=== PATIENT | male | born 1955 | race African-American/Black ===

== ENCOUNTER 2017-08-03 09:16 | Observation (INO) | payer OTHER ==
[2017-08-03] MEDS ORDERED: SODIUM CHLORIDE 0.9% 1,000 ML IV STA (09:30)
[2017-08-03] MEDS ORDERED: ASPIRIN 81 MG PO STA (09:30)
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
[2017-08-03] MEDS: NITROGLYCERIN SL TABS 0.4 MG TAB SUBLINGUAL STA ×2 (09:59→10:23)
[2017-08-03 10:33] LABS: Basophils % (A) 1 %; CH 31.8; CHCM 33.6; Eosinophils # (A) 0.2 k/uL (0-0.7); Eosinophils % (A) 4 %; HDW 2.56; HGB 16.3 gm/dL (13.0-17.5); Luc # (Auto) 0.16; Luc % (Auto) 3; Lymphocytes # (A) 1.3 k/uL (1.0-4.8); Lymphocytes % (A) 28 %; MCH 32.3 pg (25.0-35.0); MCHC 33.9 g/dL (31.0-37.0); MCV 95.1 fL (80.0-100.0); Mean Platelet Volume 8.2; Monocytes # (A) 0.3 k/uL (0-1.0); Monocytes % (A) 6 %; Neutrophils # (A) 2.8 k/uL (1.3-7.7); Neutrophils % (A) 58 %; RBC 5.04 m/uL (4.30-5.90); RDW 12.6 % (11.5-15.5); WBC 4.8 k/uL (3.8-10.6); WBC (Perox) 4.81
[2017-08-03 10:39] LABS: Prothrombin Time 10.3 sec (9.0-12.0)
--- NOTE | 2017-08-03 10:47 | XR ---
EXAMINATION TYPE: XR chest 2V DATE OF EXAM: 08/03/2017 COMPARISON: 10/24/2014 HISTORY: Shortness of breath TECHNIQUE: Frontal and lateral views of the chest are obtained. FINDINGS: Scattered senescent parenchymal changes noted. Hyperinflation compatible with COPD. No evidence for infiltrate. No evidence for atelectasis. Heart size is stable. Mediastinal structures are stable and grossly unremarkable. No evidence for hilar prominence. Degenerative changes dorsal spine. IMPRESSION: 1. No evidence for acute pulmonary disease.
[2017-08-03 10:52] LABS: Creatine Kinase 134 U/L (55-170)
[2017-08-03 10:54] LABS: ALT 46 U/L (21-72); AST 46 U/L (17-59); Alkaline Phosphatase 105 U/L (38-126); Anion Gap 9 mmol/L; Blood Urea Nitrogen 10 mg/dL (9-20); Calcium 9.1 mg/dL (8.4-10.2); Carbon Dioxide 21 mmol/L (22-30); Chloride 108 mmol/L (98-107); Glucose 113 mg/dL (74-99); Magnesium 1.6 mg/dL (1.6-2.3); Non-African American GFR(MDRD) >60 (>60 ml/min/1.73 sqM); Potassium 4.2 mmol/L (3.5-5.1); Sodium 138 mmol/L (137-145); Total Bilirubin 0.4 mg/dL (0.2-1.3); Total Protein 7.1 g/dL (6.3-8.2)
[2017-08-03 11:05] LABS: Creatine Kinase MB 1.1 ng/mL (0.0-2.4); Troponin I <0.012 ng/mL (0.000-0.034)
[2017-08-03] MEDS ORDERED: NITROGLYCERIN SL TABS 0.4 MG TAB SUBLINGUAL PRN (12:04)
[2017-08-03] MEDS ORDERED: HEPARIN SODIUM,PORCINE 5,000 UNIT/ML 1 ML VIAL IV ONE (12:04)
[2017-08-03] MEDS ORDERED: SODIUM CHLORIDE 0.9% 1,000 ML IV ONE (12:04)
[2017-08-03] MEDS ORDERED: HEPARIN SODIUM,PORCINE/D5W PMX 25,000 UNIT in DEXTROSE/WATER 1 500ML.BAG IV SCH (12:15)
[2017-08-03] MEDS: MORPHINE SULFATE 2 MG/ML SYRINGE IVP PRN ×2 (16:49→20:18)
[2017-08-03 17:11] LABS: Creatine Kinase 127 U/L (55-170)
[2017-08-03 17:24] LABS: Creatine Kinase MB 0.9 ng/mL (0.0-2.4); Troponin I <0.012 ng/mL (0.000-0.034)
[2017-08-03 17:33] VITALS: RESP 18
[2017-08-03] MEDS: NITROGLYCERIN OINT 1 INCH/GM PACKET TOPICAL SCH (18:46)
[2017-08-03] MEDS ORDERED: HEPARIN SODIUM,PORCINE 5,000 UNIT/ML 1 ML VIAL IV PRN (19:58)
[2017-08-03 22:53] LABS: Creatine Kinase 117 U/L (55-170)
[2017-08-03 23:07] LABS: Creatine Kinase MB 0.9 ng/mL (0.0-2.4); Troponin I <0.012 ng/mL (0.000-0.034)
[2017-08-04] MEDS: NITROGLYCERIN OINT 1 INCH/GM PACKET TOPICAL SCH ×3 (01:05→14:03)
[2017-08-04] MEDS: MORPHINE SULFATE 2 MG/ML SYRINGE IVP PRN (03:19)
[2017-08-04 04:20] LABS: Cholesterol 200 mg/dL (<200); HDL Cholesterol 81 mg/dL (40-60)
[2017-08-04 08:06] VITALS: BP 116/69; PULSE 61; TEMP 97.5
[2017-08-04] MEDS ORDERED: ASPIRIN 325 MG TAB PO SCH (09:00)
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
[2017-08-04] MEDS ORDERED: CYCLOBENZAPRINE 5 MG TAB PO STA (11:32)
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
--- NOTE | 2017-08-08 13:28 | ECHOF ---
Referral Reason: MEASUREMENTS -------- HEIGHT: 152.4 cm WEIGHT: 86.6 kg BP: 121/40 IVSd: 1.2 cm (0.6 - 1.1) LVIDd: 4.8 cm (3.9 - 5.3) LVPWd: 1.2 cm (0.6 - 1.1) IVSs: 1.4 cm LVIDs: 3.4 cm LVPWs: 1.3 cm LA Diam: 3.5 cm (2.7 - 3.8) LAESV Index (A-L): 37.29 ml/m Ao Diam: 3.2 cm (2.0 - 3.7) AV Cusp: 1.9 cm (1.5 - 2.6) LA Diam: 3.4 cm (2.7 - 3.8) MV EXCURSION: 22.473 mm (> 18.000) MV EF SLOPE: 114 mm/s (70 - 150) EPSS: 0.3 cm MV E Syed: 0.66 m/s MV DecT: 220 ms MV A Syed: 0.56 m/s MV E/A Ratio: 1.17 RAP: 5.00 mmHg RVSP: 26.73 mmHg FINDINGS -------- Sinus rhythm. This was a technically good study. There is mild concentric left ventricular hypertrophy. Overall left ventricular systolic function is normal with, an EF between 55 - 60 %. The right ventricle is normal in size. LA is moderately dilated 34-39 ml/m2 The right atrial size is normal. The aortic valve is trileaflet, and appears structurally normal. No aortic stenosis or regurgitation. Mild mitral regurgitation is present. Mild tricuspid regurgitation present. There is no evidence of pulmonary hypertension. The right ventricular systolic pressure, as measured by Doppler, is 26.73mmHg. There is no pulmonic regurgitation present. The aortic root size is normal. There is no pericardial effusion. CONCLUSIONS -------- 1. There is mild concentric left ventricular hypertrophy. 2. The aortic root size is normal. 3. There is no pericardial effusion. 4. Overall left ventricular systolic function is normal with, an EF between 55 - 60 %. 5. LA is moderately dilated 34-39 ml/m2 6. The aortic valve is trileaflet, and appears structurally normal. No aortic stenosis or regurgitation. 7. Mild mitral regurgitation is present. 8. Mild tricuspid regurgitation present. 9. There is no evidence of pulmonary hypertension. 10. The right ventricular systolic pressure, as measured by Doppler, is 26.73mmHg. 11. There is no pulmonic regurgitation present. UNIVERSITY RELATIONS DIRECTOR: Amie Avila RDCS
== END 2017-08-04 14:06 | disposition home or self-care (01) ==
LOC: EC 09:16 → 3OBS 11:52
PROVIDERS: ADMIT Internal Medicine; ATTEND Internal Medicine
DX: R07.89 Other chest pain (principal); R07.2 Precordial pain; F17.210 Nicotine dependence, cigarettes, uncomplicated; Z80.1 Family history of malignant neoplasm of trachea, bronchus and lung; Z87.898 Personal history of other specified conditions
CPT/HCPCS: 99285; 96376 ×4; 96365 ×2; 96366 ×6; 96375 ×2; 36415; 93005; 93306; 85379; 80061; 80053; 82550; 82553; 83735; 84484; 85025; 85610; 85730 ×2; 71020; G0378 ×2; J1644 ×2; J2270 ×2

== ENCOUNTER → 2018-08-29 | Outpatient (CLI) | payer OTHER ==
[2018-08-29 17:55] LABS: Partial Thromboplastin Time 24.5 sec (22.0-30.0)
[2018-08-30 03:56] LABS: HIV 1 AB Non-Reactive (Non-Reactive); HIV AB P24 Non-Reactive (Non-Reactive); HIV P24 AG Non-Reactive (Non-Reactive)
== END | disposition home or self-care (01) ==
LOC: LABWHC1 16:37
PROVIDERS: ATTEND Internal Medicine Infectious Disease
DX: B18.2 Chronic viral hepatitis C (principal)
CPT/HCPCS: 36415; 85610; 85730; 87390; 87522

== ENCOUNTER → 2018-10-18 | Outpatient (CLI) | payer OTHER ==
[2018-10-18 15:04] LABS: Basophils % (A) 1 %; Eosinophils # (A) 0.2 k/uL (0-0.7); Eosinophils % (A) 4 %; HGB 17.4 gm/dL (13.0-17.5); Lymphocytes # (A) 1.8 k/uL (1.0-4.8); Lymphocytes % (A) 39 %; MCH 31.7 pg (25.0-35.0); MCHC 31.6 g/dL (31.0-37.0); MCV 100.3 fL (80.0-100.0); Mean Platelet Volume 7.7; Monocytes # (A) 0.4 k/uL (0-1.0); Monocytes % (A) 8 %; Neutrophils # (A) 2.1 k/uL (1.3-7.7); Neutrophils % (A) 45 %; Platelet Count 172 k/uL (150-450); RDW 12.6 % (11.5-15.5); WBC 4.6 k/uL (3.8-10.6)
[2018-10-18 15:10] LABS: HCT 55.2 % (39.0-53.0)
[2018-10-19 01:47] LABS: Albumin 4.3 g/dL (3.80-4.90); Albumin/Globulin Ratio 1.65 (1.20-2.10); Anion Gap 6.6 mmol/L (4.00-12.00); Calcium 9.5 mg/dL (8.7-10.3); Carbon Dioxide 26.4 mmol/L (21.6-31.8); Globulin 2.6 g/dL (2.1-3.7); Potassium 4.9 mmol/L (3.5-5.5); Total Bilirubin 0.6 mg/dL (0.2-1.2); Total Protein 6.9 g/dL (6.2-8.2)
== END | disposition home or self-care (01) ==
LOC: LABWHC1 13:56
PROVIDERS: ATTEND Internal Medicine Infectious Disease
DX: B20 Human immunodeficiency virus [HIV] disease (principal)
CPT/HCPCS: 36415; 80053; 85025

== ENCOUNTER 2019-02-21 05:55 | Emergency (ER) | payer OTHER ==
[2019-02-21 06:02] VITALS: BP 154/99; PULSE 67; RESP 20; TEMP 98
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
== END 2019-02-21 06:33 | disposition home or self-care (01) ==
LOC: EC 05:55
DX: K20.8 Other esophagitis (principal); F17.200 Nicotine dependence, unspecified, uncomplicated
CPT/HCPCS: 99285

== ENCOUNTER 2020-01-03 18:20 | Inpatient (IN) | payer OTHER ==
[2020-01-03] MEDS ORDERED: SODIUM CHLORIDE 0.9% 1,000 ML IV ONE ×2 (18:58→21:48)
[2020-01-03 19:28] LABS: Appearance,Urine Turbid (Clear); Bacteria,Urine Occasional /hpf; Bilirubin,Urine Negative (Negative); Blood,Urine Large (Negative); Color,Urine Dark Brown; Glucose,Urine (UA) Trace (Negative); Granular Casts,Urine 8 /lpf (0); Hyaline Casts,Urine 3 /lpf (0-2); Ketones,Urine Negative (Negative); Leukocyte Esterase,Urine Moderate (Negative); Mucus,Urine Rare /hpf; Nitrite,Urine Negative (Negative); Protein,Urine 2+ (Negative); RBC,Urine 3 /hpf (0-5); Specific Gravity,Urine 1.018 (1.001-1.035); WBC,Urine 60 /hpf (0-5)
[2020-01-03 19:38] LABS: Amphetamine Screen,Urine Not Detected (NotDetected); Barbiturate Screen,Urine Not Detected (NotDetected); Benzodiazepines Screen,Urine Not Detected (NotDetected); Cocaine Screen,Urine Not Detected (NotDetected); Methadone Screen, Urine Not Detected (NotDetected); Opiate Screen,Urine Not Detected (NotDetected); Oxycodone Screen, Urine Not Detected (NotDetected); Phencyclidine Screen,Urine Not Detected (NotDetected); Tricyclic Antidepressant,Urine Not Detected (NotDetected); Urn Cannabinoid Scrn Not Detected (NotDetected)
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
[2020-01-03 21:17] LABS: Basophils # (A) 0.2 k/uL (0-0.2); Basophils % (A) 2 %; Eosinophils # (A) 0.2 k/uL (0-0.7); Eosinophils % (A) 2 %; HGB 15.5 gm/dL (13.0-17.5); Lymphocytes # (A) 1.6 k/uL (1.0-4.8); Lymphocytes % (A) 14 %; MCH 30.3 pg (25.0-35.0); MCHC 32.3 g/dL (31.0-37.0); MCV 93.9 fL (80.0-100.0); Mean Platelet Volume 9.4; Monocytes # (A) 0.4 k/uL (0-1.0); Monocytes % (A) 4 %; Neutrophils # (A) 9.1 k/uL (1.3-7.7); Neutrophils % (A) 79 %; Platelet Count 157 k/uL (150-450); RBC 5.11 m/uL (4.30-5.90); RDW 12.7 % (11.5-15.5); WBC 11.6 k/uL (3.8-10.6)
[2020-01-03 21:25] LABS: Partial Thromboplastin Time 23.2 sec (22.0-30.0); Prothrombin Time 10.4 sec (9.0-12.0)
[2020-01-03 21:26] LABS: African American GFR (CKD) 18 (>60 ml/min/1.73 sqM); Albumin 4.2 g/dL (3.5-5.0); Alcohol <10 mg/dL; Alkaline Phosphatase 106 U/L (38-126); Anion Gap 13 mmol/L; Blood Urea Nitrogen 48 mg/dL (9-20); C Reactive Protein 45.3 mg/L (<10.0); Calcium 8.4 mg/dL (8.4-10.2); Carbon Dioxide 23 mmol/L (22-30); Chloride 100 mmol/L (98-107); Glucose 111 mg/dL (74-99); Non-African American GFR(CKD) 15 (>60 ml/min/1.73 sqM); Potassium 4.4 mmol/L (3.5-5.1); Sodium 136 mmol/L (137-145); Total Bilirubin 0.8 mg/dL (0.2-1.3); Total Protein 7.2 g/dL (6.3-8.2)
[2020-01-03 21:39] LABS: ALT 1247 U/L (4-49)
[2020-01-03 22:08] LABS: D-Dimer 2.78 mg/L FEU (<0.60)
[2020-01-03 22:17] LABS: AST 4194 U/L (17-59)
[2020-01-03] MEDS ORDERED: HEPARIN SODIUM,PORCINE 5,000 UNIT/ML 1 ML VIAL IV ONE (22:36)
[2020-01-03] MEDS ORDERED: HEPARIN SODIUM,PORCINE 5,000 UNIT/ML 1 ML VIAL IV PRN (22:36)
[2020-01-03 22:41] LABS: Creatine Kinase 60963 U/L (55-170)
[2020-01-03] MEDS ORDERED: HEPARIN SOD,PORK IN 0.45% NACL 25,000 UNIT in 0.45% NACL 1 250ML.BAG IV SCH (22:45)
[2020-01-03] MEDS ORDERED: SODIUM CHLORIDE 0.9% 1,000 ML IV SCH (22:45)
[2020-01-03 23:04] LABS: Erythrocyte Sedimentation Rate 7 mm/hr (0-15)
[2020-01-03] MEDS ORDERED: MORPHINE SULFATE 4 MG/ML SYRINGE IV PRN (23:22)
[2020-01-03] MEDS ORDERED: NALOXONE 0.4 MG/ML 1 ML VIAL IV PRN (23:22)
[2020-01-04 01:04] LABS: Glucose,Whole Blood 146 mg/dL (75-99)
[2020-01-04] MEDS: DEXTROSE 5% IN WATER 1,000 ML with SODIUM BICARB (1 MEQ/ML) 150 ML IV SCH ×3 (02:36→21:06)
[2020-01-04 05:52] LABS: Basophils # (A) 0.1 k/uL (0-0.2); Basophils % (A) 1 %; Eosinophils # (A) 0.2 k/uL (0-0.7); Eosinophils % (A) 3 %; HCT 44.4 % (39.0-53.0); HGB 14.4 gm/dL (13.0-17.5); Lymphocytes # (A) 1.9 k/uL (1.0-4.8); Lymphocytes % (A) 24 %; MCH 30.5 pg (25.0-35.0); MCHC 32.5 g/dL (31.0-37.0); MCV 93.8 fL (80.0-100.0); Mean Platelet Volume 8.9; Monocytes # (A) 0.3 k/uL (0-1.0); Monocytes % (A) 4 %; Neutrophils # (A) 5.5 k/uL (1.3-7.7); Neutrophils % (A) 67 %; Platelet Count 125 k/uL (150-450); RBC 4.73 m/uL (4.30-5.90); RDW 12.6 % (11.5-15.5); WBC 8.1 k/uL (3.8-10.6)
[2020-01-04 06:04] LABS: Partial Thromboplastin Time 45.8 sec (22.0-30.0); Prothrombin Time 10.4 sec (9.0-12.0)
[2020-01-04 06:16] LABS: Calcium 8.3 mg/dL (8.4-10.2); Magnesium 1.8 mg/dL (1.6-2.3); Phosphorus 3.6 mg/dL (2.5-4.5); Potassium 4.1 mmol/L (3.5-5.1)
[2020-01-04 06:55] LABS: Albumin 3.6 g/dL (3.5-5.0); Total Bilirubin 0.8 mg/dL (0.2-1.3); Total Protein 6.2 g/dL (6.3-8.2)
[2020-01-04] MEDS: PANTOPRAZOLE 40 MG/10 ML VIAL IV SCH (08:41)
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
--- NOTE | 2020-01-04 13:30 | HP ---
HISTORY AND PHYSICAL CHIEF COMPLAINT: Cough, congestion, and myalgias. HISTORY OF PRESENT ILLNESS: His history is not likely to be accurate. He stated he was in [place] and snorted something and thought it was heroin, but does not know. He also was drinking heavily and drinks 2 pints a day. It is not clear if he passed out or not, nor how long he was out and if he did lose consciousness. When he came to the emergency room, he had laboratory studies that demonstrated urine with numerous white and red blood cells as well as protein. There were also hyaline casts. His CBC was normal. BUN was elevated 48 with a creatinine of 3.95. GFR was only 18. CK was 60,963 and it was felt he probably had rhabdomyolysis. REVIEW OF SYSTEMS: He denies any neurologic problems, change in vision or hearing, chest pain, cough, shortness of breath, abdominal pain, vomiting, hematemesis, melena, hematochezia, jaundice, acholic stools or dark urine. He does have hepatitis C with a viral load. He denies dysuria, frequency, urgency, etc. Past medical history, family history and personal and social histories are otherwise unremarkable. He is not allergic to any medication. MEDICATIONS: The only medicine that he states that he takes his tramadol. PHYSICAL EXAMINATION: Blood pressure is 151/103 with a pulse 63, respirations of 12 and he is afebrile. In general, he appeared to be well developed, well nourished, no acute distress. Skin color is normal. Skin is warm, dry. Lymph nodes are not enlarged. Head, ears, eyes, nose, mouth, and throat were normal. Neck veins not distended. Thyroid is not enlarged. Chest is clear. The cardiac exam is normal. Abdomen is soft, nontender. He does have edema of the face and upper and lower extremities. IMPRESSION: 1. Rhabdomyolysis. 2. Acute renal failure. 3. Alcoholism. 4. Heroin addiction. PLAN: 1. Bed rest. 2. IV fluids. 3. Control hypertension. 4. Monitor renal function. 5. Renal consult. MMODL / JAYYN: [id number] /
--- NOTE | 2020-01-04 13:30 | PN ---
PROGRESS NOTE CHIEF COMPLAINT: Rhabdomyolysis and alcoholism with renal failure. HISTORY OF PRESENT ILLNESS: This gentleman is feeling fairly well, but he is still complaining of a lot of swelling and pain in the arm in the musculature in the arms and legs. BUN and creatinine are still elevated and he is to be seen by Nephrology. PHYSICAL EXAMINATION: Vital signs are normal. Chest is clear. Cardiac exam is normal. Abdomen is soft and nontender. IMPRESSION: 1. Rhabdomyolysis. 2. Acute renal injury. 3. Alcoholism. 4. Heroin addiction. PLAN: Continue with IV fluids and continue to monitor renal function and vital signs. MMODL / IJN: [id number] /
[2020-01-04] MEDS: NICOTINE 7MG/24HR PATCH TRANSDERM SCH (17:19)
[2020-01-04] MEDS: HEPARIN SODIUM,PORCINE 5,000 UNIT/ML 1 ML VIAL SQ SCH (19:58)
[2020-01-04] MEDS: amLODIPine 5 MG TAB PO SCH (19:58)
[2020-01-04] MEDS: hydrALAZINE HCL 50 MG TAB PO SCH (19:58)
[2020-01-05 06:17] LABS: Basophils % (A) 1 %; Eosinophils # (A) 0.1 k/uL (0-0.7); Eosinophils % (A) 4 %; HCT 44.1 % (39.0-53.0); HGB 14.7 gm/dL (13.0-17.5); Lymphocytes % (A) 28 %; MCH 31.1 pg (25.0-35.0); MCHC 33.3 g/dL (31.0-37.0); MCV 93.4 fL (80.0-100.0); Mean Platelet Volume 9.1; Monocytes # (A) 0.2 k/uL (0-1.0); Monocytes % (A) 5 %; Neutrophils % (A) 58 %; Platelet Count 130 k/uL (150-450); RBC 4.72 m/uL (4.30-5.90); RDW 12.5 % (11.5-15.5); WBC 3.5 k/uL (3.8-10.6)
[2020-01-05 06:26] LABS: INR 0.9 (<1.2); Partial Thromboplastin Time 22.3 sec (22.0-30.0); Prothrombin Time 9.5 sec (9.0-12.0)
[2020-01-05 06:29] LABS: Calcium 9.1 mg/dL (8.4-10.2); Magnesium 1.8 mg/dL (1.6-2.3); Phosphorus 1.9 mg/dL (2.5-4.5); Potassium 4.1 mmol/L (3.5-5.1)
[2020-01-05] MEDS: DEXTROSE 5% IN WATER 1,000 ML with SODIUM BICARB (1 MEQ/ML) 150 ML IV SCH (09:02)
[2020-01-05] MEDS: hydrALAZINE HCL 50 MG TAB PO SCH ×4 (09:02→21:41)
[2020-01-05] MEDS: HEPARIN SODIUM,PORCINE 5,000 UNIT/ML 1 ML VIAL SQ SCH ×2 (09:02→21:43)
[2020-01-05] MEDS: amLODIPine 5 MG TAB PO SCH ×2 (09:02→21:41)
[2020-01-05] MEDS: PANTOPRAZOLE 40 MG/10 ML VIAL IV SCH (09:03)
[2020-01-05] MEDS: NICOTINE 7MG/24HR PATCH TRANSDERM SCH (09:04)
[2020-01-05] MEDS: SODIUM CHLORIDE 0.45% 1,000 ML IV SCH ×2 (09:05→16:01)
--- NOTE | 2020-01-05 09:38 | P.PN ---
Subjective Progress Note Date: 01/05/20 Principal diagnosis: Acute rhabdomyolysis, acute kidney injury This is a 64-year-old -[place]ien male with history of recently discovered positive hepatitis C screening. History of alcoholism patient drinks at least 2 pints of alcohol per day. Patient was in [place] yesterday, he had quite a few drinks, and he snorted some had a 1. [place] drowsy and apparently he passed out hitting his head. He was told by a friend that he passed out. But could not elaborate how long and what was done. Patient drove himself home from [place] to [place], after arrival to [place], patient was experiencing generalized aches and pains. [place] sore all over. Then he drove himself to the ER. And his only complaint was mostly aches and pains. Denied any headaches, denied any blurred vision, no dizziness, no nausea, no vomiting, no abdominal pain, no melena, no hematemesis. Patient had workup in the form of CT head and cervical spine which came back negative. Chest x-ray showed no evidence of cardiopulmonary disease. Labs however came back abnormal showing elevated liver enzymes with AST of 4194 ALT of 1247, elevated troponin of 0.619 and has been trending downward since admission. His CPK however was extremely high at 60,963. Lipase was also elevated at 325. Alcohol level was less than 10. Urinary drug screen was negative. Influenza screen was also negative. Patient denies any cough, no wheezing, no fever, no chills, no hemoptysis, he also denies any shortness of breath whatsoever. He just feels sore all over. Follow-up CPK level is pending liver enzymes are improving since admission. Patient was placed on IV fluids at 150 mL per hour in the form of 0.9 normal saline. Renal functioning was abnormal creatinine 3.95 on admission went down to 2.62 with hydration.. Patient is already feeling a bit better, considering his abnormal troponin, d-dimer, and abnormal renal functioning, patient was placed on heparin intravenously, my index of suspicion for pulmonary embolism is nill, however I have recommended cardiac evaluation for his abnormal troponins. Patient is yet to be seen by cardiology on consultation. Again the repeat CPK is pending. On 01/05/2020 patient seen in follow-up in the intensive care unit, he is awake and alert, oriented 3, denies any acute distress, currently on room air, with a pulse ox of 96%, hemodynamically stable, afebrile, denies any shortness of breath, denies any chest pain, no altered mentation. he is calm and cooperative, no signs of delirium tremens. The fluids are D5 W with 3 A of sodium bicarbonate at 150 ML per hour. Today's labs have been reviewed, showing liquid silk on a 3.5, hemoglobin of 14.7, INR 0.9, serum sodium is improving up to 134, potassium is 4.1, chloride is 97, CO2 is 37, B1 is 26, creatinine has improved down to 1.2 from 2.62 on yesterday's labs. Today's total CK is tren ding down, down to 14,966. No nausea vomiting or diarrhea, patient is tolerating oral intake. Patient is voiding. Objective - Vital Signs Vital signs: Vital Signs Temp 98.2 F 01/05/20 08:00 Pulse 73 01/05/20 08:00 Resp 18 01/05/20 08:00 BP 162/102 01/05/20 08:00 Pulse Ox 96 01/05/20 08:00 Intake & Output 01/04/20 01/05/20 01/05/20 18:59 06:59 18:59 Intake Total 1400 1650 Output Total 550 500 Balance 850 1150 Weight 88.6 kg Intake: IV 1400 1650 Dextrose 5% in Water 1, 1400 1650 000 ml @ 150 mls/hr IV . Q7H40M ERNESTINA with Sodium Bicarb (1 Meq/ml) 150 ml Rx#:[id number] Output: Urine 550 500 Other: Voiding Method Urinal Urinal Urinal # Voids 300 3 - Exam GENERAL EXAM: Alert, very pleasant, 64-year-old -N[place]ien male, on room air, with pulse ox of 96%, comfortable in no apparent distress. HEAD: Normocephalic/atraumatic. EYES: Normal reaction of pupils, equal size. Conjunctiva pink, sclera white. NOSE: Clear with pink turbinates. THROAT: No erythema or exudates. NECK: No masses, no JVD, no thyroid enlargement, no adenopathy. CHEST: No chest wall deformity. Symmetrical expansion. LUNGS: Equal air entry with no crackles, wheeze, rhonchi or dullness. CVS: Regular rate and rhythm, normal S1 and S2, no gallops, no murmurs, no rubs ABDOMEN: Soft, nontender. No hepatosplenomegaly, normal bowel sounds, no guarding or rigidity. EXTREMITIES: No clubbing, no edema, no cyanosis, 2+ pulses and upper and lower extremities. MUSCULOSKELETAL: Muscle strength and tone normal. SPINE: No scoliosis or deformity SKIN: No rashes CENTRAL NERVOUS SYSTEM: Alert and oriented -3. No focal deficits, tone is normal in all 4 extremities. PSYCHIATRIC: Alert and oriented -3. Appropriate affect. Intact judgment and insight. - Labs CBC & Chem 7: 01/05/20 05:57 01/05/20 05:57 Labs: Abnormal Lab Results - Last 24 Hours (Table) 01/04/20 01/04/20 01/04/20 Range/Units 05:25 11:48 11:48 WBC (3.8-10.6) k/uL Plt Count (150-450) k/uL Sodium (137-145) mmol/L Chloride (98-107) mmol/L Carbon Dioxide (22-30) mmol/L BUN (9-20) mg/dL Glucose (74-99) mg/dL Phosphorus (2.5-4.5) mg/dL AST (17-59) U/L ALT (4-49) U/L Creatine Kinase 91482 H* (55-170) U/L CK-MB (CK-2) 201.0 H (0.0-2.4) ng/mL Troponin I 0.124 H* (0.000-0.034) ng/mL 01/05/20 01/05/20 Range/Units 05:57 05:57 WBC 3.5 L (3.8-10.6) k/uL Plt Count 130 L (150-450) k/uL Sodium 134 L (137-145) mmol/L Chloride 97 L (98-107) mmol/L Carbon Dioxide 37 H (22-30) mmol/L BUN 26 H (9-20) mg/dL Glucose 156 H (74-99) mg/dL Phosphorus 1.9 L (2.5-4.5) mg/dL AST 1673 H (17-59) U/L ALT 733 H (4-49) U/L Creatine Kinase 88280 H* (55-170) U/L CK-MB (CK-2) (0.0-2.4) ng/mL Troponin I (0.000-0.034) ng/mL Assessment and Plan Plan: Assessment: #1. Acute rhabdomyolysis, most likely secondary to fall, patient has no recollection of how he fell or how he injured his head or how long she was down #2. Acute kidney injury secondary to acute rhabdomyolysis, improved #3. Untreated hepatitis C with abnormal liver enzymes #4. Alcohol liver disease and history of alcoholism #5. Abnormal d-dimer but no active pulmonary symptoms no clinical significance #6. Abnormal troponin, cardiac evaluation is requested Plan: Patient is hemodynamically stable, renal profile continues to improve, CT continues to trend down, tolerating oral diet, is voiding, no nausea or vomiting, today's labs have been reviewed, patient's bicarbonate drip can be discontinued and patient can be started on half-normal saline at a rate of 150 ML per hour, patient can be transferred to medical surgical floor with telemetry monitoring. Increase activity as tolerated, maintaining safety precautions, repeat labs in the morning. I performed a history & physical examination of the patient and discussed their management with my nurse practitioner, Sylvia Cartagena. I reviewed the nurse practitioner's note and agree with the documented findings and plan of care. Lung sounds are positive for clear breath sounds. The findings and the impression was discussed with the patient. I attest to the documentation by the nurse practitioner. Time with Patient: Less than 30
[2020-01-05 11:47] LABS: Albumin 3.6 g/dL (3.5-5.0); Total Bilirubin 0.9 mg/dL (0.2-1.3); Total Protein 6.3 g/dL (6.3-8.2)
--- NOTE | 2020-01-05 12:38 | PN ---
PROGRESS NOTE This is a 64-year-old gentleman who was admitted to hospital with rhabdomyolysis following cocaine and alcohol abuse. Patient was admitted to ICU because of elevated CPKs and renal insufficiency. I have been consulted because of elevated troponins. His troponins were at 0.6, 0.2 and 0.1 and this happened in the context of renal insufficiency. I have seen the patient on 01/04/2020 and today I am seeing the patient in followup. The patient is feeling better. Renal functions are improving. The CPK levels are coming down. I ordered an echo on him and results are pending at this time. PHYSICAL EXAMINATION: On exam, heart rate is 73 beats per minute. Blood pressure is 162/102. Respiratory rate is 18. Chest exam reveals good air entry bilaterally. Heart exam reveals first and second heart sounds. No gallop. No murmur. Abdomen is soft. Exam of extremities did not reveal any edema. Peripheral pulses are felt. ASSESSMENT: 1. Elevated troponin. 2. Uncontrolled hypertension. 3. Rhabdomyolysis. 4. Renal insufficiency. PLAN: Patient is doing better. I am going to increase the dose of hydralazine to 100 t.i.d. for better control of blood pressure. Review the echo. MMODL / IJN: [id number] /
--- NOTE | 2020-01-05 14:20 | CONS ---
CONSULTATION DATE OF CONSULTATION: 01/04/2020 CHIEF COMPLAINT: Elevated troponin. HISTORY OF PRESENT ILLNESS: Mr. Camargo is a 64-year-old gentleman who was admitted to hospital with rhabdomyolysis following ETOH and cocaine abuse. His CPKs were elevated and patient had renal insufficiency. After being admitted, he had troponins that were elevated due to which I was consulted. I saw the patient on Sunday. At the time of my evaluation, patient was chest pain-free, hemodynamically stable and did not have any cardiac symptoms. His creatinine is 2.6. BUN is 48. Troponins are mildly elevated at 0.2 and 0.1. I believe the troponin elevation is related to the renal insufficiency and I anticipate it getting better. An EKG on him shows sinus rhythm with right bundle branch block and an echocardiogram has been ordered. PAST MEDICAL HISTORY: Negative for hypertension, diabetes, dyslipidemia. MEDICATIONS: Include tramadol. ALLERGIES: There are no known drug allergies. FAMILY HISTORY: Negative for premature coronary artery disease. SOCIAL HISTORY: Negative for smoking, EtOH abuse, or drug abuse. REVIEW OF SYSTEMS: HEENT: Unremarkable. CARDIAC: As described above. RESPIRATORY: Negative GASTROINTESTINAL: Negative. GENITOURINARY: Negative. ALLERGY: None. SKIN: Negative. MUSCULOSKELETAL: Significant for arthritis. PSYCHOSOCIAL: Negative. ENDOCRINE: Negative. CONSTITUTIONAL: Negative. ONCOLOGICAL: Negative. SPECIAL SYSTEMS TECHNICIAN: Negative. PHYSICAL EXAMINATION: On exam, comfortable at rest. Blood pressure is elevated, heart rate is 67 beats per minute, blood pressure is 159____, respiratory rate 18 per minute. There is no jugular venous distention. Carotid upstroke is normal. There is no bruit. Chest exam reveals good air entry bilaterally. Heart exam reveals first and second heart sounds. No gallop. No murmur. No rub. Abdomen is soft, nontender. Exam of extremities did not reveal any edema. Peripheral pulses are felt. EKG is as described above. LABS: As described above. ASSESSMENT: 1. Rhabdomyolysis. 2. Troponin elevation secondary to renal insufficiency. PLAN: 1. I will obtain a 2D echo to assess LV function and wall motion. No other cardiac workup at this time. MMODL / IJN: [id number] /
[2020-01-05] MEDS ORDERED: BENZOCAINE/MENTHOL LOZENG 1 EACH LOZENGE MUCOUS MEM PRN (15:55)
--- NOTE | 2020-01-05 18:54 | ECHOF ---
Referral Reason:elevated troponins MEASUREMENTS -------- HEIGHT: 182.9 cm WEIGHT: 88.5 kg BP: IVSd: 1.2 cm (0.6 - 1.1) LVIDd: 3.9 cm (3.9 - 5.3) LVPWd: 1.3 cm (0.6 - 1.1) IVSs: 1.8 cm LVIDs: 3.1 cm LVPWs: 1.6 cm LAESV Index (A-L): 19.59 ml/m Ao Diam: 3.2 cm (2.0 - 3.7) AV Cusp: 1.5 cm (1.5 - 2.6) LA Diam: 2.7 cm (2.7 - 3.8) MV EXCURSION: 23.948 mm (> 18.000) MV EF SLOPE: 159 mm/s (70 - 150) EPSS: 1.1 cm MV E Syed: 0.45 m/s MV DecT: 262 ms MV A Syed: 0.71 m/s MV E/A Ratio: 0.63 RAP: 5.00 mmHg RVSP: 18.61 mmHg FINDINGS -------- Sinus rhythm. This was a technically good study. The left ventricular size is normal. Left ventricular wall thickness is normal. Overall left vent ricular systolic function is normal with, an EF between 55 - 60 %. The diastolic filling pattern is normal for the age of the patient 5.87. The right ventricle is normal in size. The left atrial size is normal. The right atrial size is normal. The aortic valve is trileaflet and appears structurally normal. The mitral valve is normal. There is trace mitral regurgitation. The tricuspid valve appears structurally normal. Trace tricuspid regurgitation present. The right ventricular systolic pressure, as measured by Doppler, is 18.61mmHg. There is no pulmonic regurgitation present. There is no pericardial effusion. CONCLUSIONS -------- 1. Sinus rhythm. 2. This was a technically good study. 3. The left ventricular size is normal. 4. Left ventricular wall thickness is normal. 5. Overall left ventricular systolic function is normal with, an EF between 55 - 60 %. 6. The diastolic filling pattern is normal for the age of the patient 5.87 7. The right ventricle is normal in size. 8. The left atrial size is normal. 9. The right atrial size is normal. 10. The aortic valve is trileaflet and appears structurally normal. 11. The mitral valve is normal. 12. There is trace mitral regurgitation. 13. The tricuspid valve appears structurally normal. 14. Trace tricuspid regurgitation present. 15. The right ventricular systolic pressure, as measured by Doppler, is 18.61mmHg. 16. There is no pulmonic regurgitation present. 17. There is no pericardial effusion. BURR BENCH OPERATOR: Lisa Victoria RDCS
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
[2020-01-05] MEDS: ACETAMINOPHEN TAB 325 MG TAB PO PRN (21:40)
--- NOTE | 2020-01-05 22:58 | PN ---
PROGRESS NOTE CHIEF COMPLAINT: Rhabdomyolysis. HISTORY OF PRESENT ILLNESS: This gentleman is doing a little bit better. He has a little less generalized edema and pain. His renal function is improving. Blood pressure is still slightly elevated. PHYSICAL EXAMINATION: His chest is clear. Cardiac exam is normal. The abdomen is soft and nontender. Extremities are somewhat less edematous and tender. IMPRESSION: 1. Rhabdomyolysis. 2. Renal failure. 3. Hypertension. PLAN: Continue with IV fluids and monitoring his renal function, which does seem to be improving. His troponin is elevated, but this is likely not cardiac in origin. MMODL / IJN: [id number] /
[2020-01-06] MEDS: ACETAMINOPHEN TAB 325 MG TAB PO PRN ×3 (04:09→22:14)
[2020-01-06] MEDS: SODIUM CHLORIDE 0.45% 1,000 ML IV SCH ×4 (05:38→22:21)
[2020-01-06 05:58] LABS: Albumin 3.8 g/dL (3.5-5.0); Bilirubin, Delta 0.4 mg/dL (0.0-0.2); Bilirubin,Unconjugated 0.9 mg/dL (0.0-1.1); Total Bilirubin 1.3 mg/dL (0.2-1.3); Total Protein 6.7 g/dL (6.3-8.2)
[2020-01-06 06:03] LABS: INR 0.9 (<1.2); Prothrombin Time 9.5 sec (9.0-12.0)
[2020-01-06 06:11] LABS: Basophils # (A) 0.1 k/uL (0-0.2); Basophils % (A) 2 %; Eosinophils # (A) 0.1 k/uL (0-0.7); Eosinophils % (A) 3 %; HGB 15.4 gm/dL (13.0-17.5); Lymphocytes # (A) 0.8 k/uL (1.0-4.8); Lymphocytes % (A) 21 %; MCH 31.4 pg (25.0-35.0); MCHC 33.5 g/dL (31.0-37.0); MCV 93.8 fL (80.0-100.0); Mean Platelet Volume 9.8; Monocytes # (A) 0.2 k/uL (0-1.0); Monocytes % (A) 5 %; Neutrophils # (A) 2.6 k/uL (1.3-7.7); Neutrophils % (A) 66 %; Platelet Count 135 k/uL (150-450); RDW 12.5 % (11.5-15.5); WBC 3.9 k/uL (3.8-10.6)
[2020-01-06] MEDS: PANTOPRAZOLE 40 MG TABLET PO SCH (07:06)
--- NOTE | 2020-01-06 08:33 | P.PN ---
Subjective Progress Note Date: 01/06/20 Principal diagnosis: Acute rhabdomyolysis, acute kidney injury This is a 64-year-old -[place] male with history of recently discovered positive hepatitis C screening. History of alcoholism patient drinks at least 2 pints of alcohol per day. Patient was in [place] yesterday, he had quite a few drinks, and he snorted some had a 1. [place] drowsy and apparently he passed out hitting his head. He was told by a friend that he passed out. But could not elaborate how long and what was done. Patient drove himself home from [place] to [place], after arrival to [place], patient was experiencing generalized aches and pains. [place] sore all over. Then he drove himself to the ER. And his only complaint was mostly aches and pains. Denied any headaches, denied any blurred vision, no dizziness, no nausea, no vomiting, no abdominal pain, no melena, no hematemesis. Patient had workup in the form of CT head and cervical spine which came back negative. Chest x-ray showed no evidence of cardiopulmonary disease. Labs however came back abnormal showing elevated liver enzymes with AST of 4194 ALT of 1247, elevated troponin of 0.619 and has been trending downward since admission. His CPK however was extremely high at 60,963. Lipase was also elevated at 325. Alcohol level was less than 10. Urinary drug screen was negative. Influenza screen was also negative. Patient denies any cough, no wheezing, no fever, no chills, no hemoptysis, he also denies any shortness of breath whatsoever. He just feels sore all over. Follow-up CPK level is pending liver enzymes are improving since admission. Patient was placed on IV fluids at 150 mL per hour in the form of 0.9 normal saline. Renal functioning was abnormal creatinine 3.95 on admission went down to 2.62 with hydration.. Patient is already feeling a bit better, considering his abnormal troponin, d-dimer, and abnormal renal functioning, patient was placed on heparin intravenously, my index of suspicion for pulmonary embolism is nill, however I have recommended cardiac evaluation for his abnormal troponins. Patient is yet to be seen by cardiology on consultation. Again the repeat CPK is pending. On 01/05/2020 patient seen in follow-up in the intensive care unit, he is awake and alert, oriented 3, denies any acute distress, currently on room air, with a pulse ox of 96%, hemodynamically stable, afebrile, denies any shortness of breath, denies any chest pain, no altered mentation. he is calm and cooperative, no signs of delirium tremens. The fluids are D5 W with 3 A of sodium bicarbonate at 150 ML per hour. Today's labs have been reviewed, showing liquid silk on a 3.5, hemoglobin of 14.7, INR 0.9, serum sodium is improving up to 134, potassium is 4.1, chloride is 97, CO2 is 37, B1 is 26, creatinine has improved down to 1.2 from 2.62 on yesterday's labs. Today's total CK is tren ding down, down to 14,966. No nausea vomiting or diarrhea, patient is tolerating oral intake. Patient is voiding. On 01/06/2020 patient seen in follow-up in the intensive care unit, she is resting comfortably in bed, his been awaiting a bed on general medical floor. Stable overnight, vital signs are stable, room air pulse ox is 98%, afebrile, hemodynamically stable, non-tachycardic, awake and alert, oriented 3, no signs of DTs. No specific complaints, lung sounds are positive for a few scattered rhonchi, no complete shortness of breath or chest pain, today's labs have been reviewed. Showing white blood cell count of 3.9, hemoglobin of 15.4, platelet count is improving, up to 135, liver enzymes are trending down, AST is 1362, AST is 573, CK is down to 10,520. Total bilirubin is 1.3. Patient was seen by the GI service, and ultrasound abdomen was ordered and is pending at this time. No other acute issues overnight, from pulmonary perspective patient is stable, could be considered for discharge home today. Objective - Vital Signs Vital signs: Vital Signs Temp 98 F 01/06/20 04:00 Pulse 82 01/06/20 04:00 Resp 16 01/06/20 04:00 BP 130/74 01/06/20 04:00 Pulse Ox 98 01/06/20 04:00 Intake & Output 01/05/20 01/06/20 01/06/20 18:59 06:59 18:59 Intake Total 1200 2825 Output Total 250 Balance 950 2825 Weight 85.5 kg Intake: IV 1200 2625 Sodium Chloride 0.45% 1, 1200 2625 000 ml @ 150 mls/hr IV . Q6H40M [facility] Rx#:[id number] Oral 200 Output: Urine 250 Other: Voiding Method Urinal # Voids 3 3 # Bowel Movements 1 - Exam GENERAL EXAM: Alert, very pleasant, 64-year-old -[place] male, on room air, with pulse ox of 96%, comfortable in no apparent distress. HEAD: Normocephalic/atraumatic. EYES: Normal reaction of pupils, equal size. Conjunctiva pink, sclera white. NOSE: Clear with pink turbinates. THROAT: No erythema or exudates. NECK: No masses, no JVD, no thyroid enlargement, no adenopathy. CHEST: No chest wall deformity. Symmetrical expansion. LUNGS: Equal air entry with no crackles, wheeze, rhonchi or dullness. CVS: Regular rate and rhythm, normal S1 and S2, no gallops, no murmurs, no rubs ABDOMEN: Soft, nontender. No hepatosplenomegaly, normal bowel sounds, no guarding or rigidity. EXTREMITIES: No clubbing, no edema, no cyanosis, 2+ pulses and upper and lower extremities. MUSCULOSKELETAL: Muscle strength and tone normal. SPINE: No scoliosis or deformity SKIN: No rashes CENTRAL NERVOUS SYSTEM: Alert and oriented -3. No focal deficits, tone is normal in all 4 extremities. PSYCHIATRIC: Alert and oriented -3. Appropriate affect. Intact judgment and insight. - Labs CBC & Chem 7: 01/06/20 05:32 01/05/20 05:57 Labs: Abnormal Lab Results - Last 24 Hours (Table) 01/05/20 01/06/20 01/06/20 Range/Units 05:57 05:32 05:32 Plt Count 135 L (150-450) k/uL Lymphocytes # 0.8 L (1.0-4.8) k/uL Sodium 134 L (137-145) mmol/L Chloride 97 L (98-107) mmol/L Carbon Dioxide 37 H (22-30) mmol/L BUN 26 H (9-20) mg/dL Glucose 156 H (74-99) mg/dL Phosphorus 1.9 L (2.5-4.5) mg/dL Delta Bilirubin 0.4 H (0.0-0.2) mg/dL AST 1673 H 1362 H (17-59) U/L ALT 733 H 573 H (4-49) U/L Creatine Kinase 77880 H* 52193 H* (55-170) U/L Assessment and Plan Plan: Assessment: #1. Acute rhabdomyolysis, most likely secondary to fall, patient has no recoll ection of how he fell or how he injured his head or how long he was down, improving #2. Acute kidney injury secondary to acute rhabdomyolysis, improved #3. Untreated hepatitis C with abnormal liver enzymes #4. Alcohol liver disease and history of alcoholism #5. Abnormal d-dimer but no active pulmonary symptoms no clinical significance #6. Abnormal troponin, cardiac evaluation is requested Plan: Patient remains stable overnight, no specific complaints, vital signs are stable, total CK is trending down, liver enzymes are improving, patient is on room air, increase activity as tolerated, GI service consultation was noted, ultrasound abdomen is pending, from pulmonary/critical care standpoint patient is able to transfer to medical floor, and possibly discharge home today I performed a history & physical examination of the patient and discussed their management with my nurse practitioner, Sylvia Cartagena. I reviewed the nurse practitioner's note and agree with the documented findings and plan of care. Lung sounds are positive for clear breath sounds. The findings and the im pression was discussed with the patient. I attest to the documentation by the nurse practitioner. Time with Patient: Less than 30
[2020-01-06] MEDS: HEPARIN SODIUM,PORCINE 5,000 UNIT/ML 1 ML VIAL SQ SCH ×2 (09:15→22:15)
[2020-01-06] MEDS: amLODIPine 5 MG TAB PO SCH ×2 (09:15→22:15)
[2020-01-06] MEDS: NICOTINE 7MG/24HR PATCH TRANSDERM SCH (09:15)
[2020-01-06] MEDS: hydrALAZINE HCL 50 MG TAB PO SCH ×3 (09:16→22:15)
--- NOTE | 2020-01-06 13:48 | US ---
EXAMINATION TYPE: US abdomen complete DATE OF EXAM: 01/06/2020 COMPARISON: NONE CLINICAL HISTORY: elevated liver enzymes, hepatitis. EXAM MEASUREMENTS: Liver Length: 16.5 cm Gallbladder Wall: 0.2 cm CBD: 0.7 cm Spleen: 12.2 cm Right Kidney: 12.1 x 5.3 x 6.1 cm Left Kidney: 12.6 x 6.6 x 6.3 cm Pancreas: Obscured by bowel gas Liver: Echogenic and heterogeneous. Echogenic foci visualized measuring 1.3 cm Gallbladder: wnl Evidence for sonographic Harris's sign: No CBD: Dilated, distal portion obscured by bowel gas Spleen: wnl Right Kidney: No hydronephrosis or masses seen Left Kidney: No hydronephrosis or masses seen Upper IVC: wnl Abd Aorta: partially obscured by bowel gas, no sonographic evidence for AAA The liver is echogenic and heterogeneous. The intrahepatic portion of the IVC and proximal abdominal aorta are within normal limits. There is no evidence of cholelithiasis. Common bile duct is enlarg ed. The visualized portions of the pancreas are homogenous. The spleen is unremarkable. Kidneys ar e symmetric and free of hydronephrosis. No renal lesions are seen. IMPRESSION: 1. Coarsened hepatic echotexture corresponds to patient's underlying known hepatocellular disease. Th ere are few echogenic foci in the liver that do not appear to have shadowing. Although these could re present granulomas, pneumobilia is possible. CT abdomen could further assess this finding. 2. Obscuration of the pancreas by overlying bowel gas. 3. Mild dilatation of the common bile duct, correlate with serum laboratory values is no other eviden ce of acute cholecystitis is seen on ultrasound.
[2020-01-06 14:10] LABS: Calcium 9.9 mg/dL (8.4-10.2); Potassium 4.3 mmol/L (3.5-5.1)
[2020-01-06 15:38] VITALS: RESP 18
--- NOTE | 2020-01-06 19:39 | PN ---
PROGRESS NOTE CHIEF COMPLAINT: Rhabdomyolysis and renal failure. HISTORY OF PRESENT ILLNESS: This gentleman is improving. BUN and creatinine are coming down. Peripheral edema is improving. His blood pressure is elevated, however. PHYSICAL EXAMINATION: Chest is clear. Cardiac exam is normal. Abdomen is soft and nontender. The extremities are less edematous and they are not tender. IMPRESSION: 1. Rhabdomyolysis. 2. Acute renal failure. 3. Hypertension. 4. Alcohol abuse. 5. Heroin abuse. PLAN: 1. Increase antihypertensive treatment. 2. Move to regular bed. MMODL / IJN: [id number] /
--- NOTE | 2020-01-06 20:03 | P.PN ---
Subjective Progress Note Date: 01/06/20 Principal diagnosis: Elevated liver enzymes, rhabdomyolysis, hepatitis C Patient is seen in his room, no acute complaints. Denying any abdominal pain, nausea or vomiting. Objective - Vital Signs Vital signs: Vital Signs Temp 98.0 F 01/06/20 08:00 Pulse 71 01/06/20 08:00 Resp 16 01/06/20 08:00 BP 132/88 01/06/20 08:00 Pulse Ox 98 01/06/20 08:00 Intake & Output 01/05/20 01/06/20 01/06/20 18:59 06:59 18:59 Intake Total 1200 2825 1530 Output Total 250 Balance 950 2825 1530 Weight 85.5 kg Intake: IV 1200 2625 1050 Sodium Chloride 0.45% 1, 1200 2625 1050 000 ml @ 150 mls/hr IV . Q6H40M [facility] Rx#:[id number] Oral 200 480 Output: Urine 250 Other: Voiding Method Urinal Toilet Urinal # Voids 3 3 1 # Bowel Movements 1 1 - Exam On physical examination, patient appears comfortable in no apparent distress. HEAD: Normocephalic, atraumatic. EYES: No scleral icterus. No conjunctival injection. MOUTH: No lesions, tongue midline. NECK: Trachea midline, no gross abnormalities. ABDOMEN: Soft, obese. Bowel sounds are positive. No organomegaly. No guarding or rigidity. EXTREMITIES: No pedal edema. SKIN: No rashes, no jaundice. NEUROLOGIC: Alert and oriented x3. No focal deficits. - Labs CBC & Chem 7: 01/06/20 05:32 01/06/20 05:32 Labs: Abnormal Lab Results - Last 24 Hours (Table) 01/06/20 01/06/20 Range/Units 05:32 05:32 Plt Count 135 L (150-450) k/uL Lymphocytes # 0.8 L (1.0-4.8) k/uL Delta Bilirubin 0.4 H (0.0-0.2) mg/dL AST 1362 H (17-59) U/L ALT 573 H (4-49) U/L Creatine Kinase 73402 H* (55-170) U/L Assessment and Plan (1) Elevated liver enzymes Narrative/Plan: 64-year-old male presenting hospital for evaluation of an episode of passing out after drinking alcohol in starting heroine. The patient is currently being treated for rhabdomyolysis and was found to have markedly elevated liver enzymes predominantly in a hepatocellular pattern with AST of 2911 and ALT 1055 on pre sentation both which have continued to trend down. This is likely related to his rhabdomyolysis, exacerbated due to his known history of hepatitis C which is treatment juan and alcohol use. Currently liver enzymes are trending down. Current Visit: Yes Status: Acute Code(s): R74.8 - ABNORMAL LEVELS OF OTHER SERUM ENZYMES SNOMED Code(s): 691406951 (2) Rhabdomyolysis Current Visit: Yes Status: Acute Code(s): M62.82 - RHABDOMYOLYSIS SNOMED Code(s): 469313091 Plan: Supportive care Okay for diet Continue to monitor CBC, CMP Hepatitis C genotype and viral load pending Ultrasound of the abdomen reviewed and consistent with hepatocellular disease without any acute findings Would recommend follow-up in the outpatient setting, however if patient continues to abuse substances he is doing ideal candidate for antiviral therapy Thank you for allowing us to participate in the care of patient
[2020-01-07] MEDS: SODIUM CHLORIDE 0.45% 1,000 ML IV SCH ×2 (01:27→08:19)
[2020-01-07 05:58] VITALS: BP 120/65; PULSE 78; TEMP 97.3
[2020-01-07] MEDS: PANTOPRAZOLE 40 MG TABLET PO SCH (08:20)
[2020-01-07] MEDS: amLODIPine 5 MG TAB PO SCH (08:20)
[2020-01-07] MEDS: hydrALAZINE HCL 50 MG TAB PO SCH (08:20)
[2020-01-07] MEDS: HEPARIN SODIUM,PORCINE 5,000 UNIT/ML 1 ML VIAL SQ SCH (08:20)
[2020-01-07] MEDS: NICOTINE 7MG/24HR PATCH TRANSDERM SCH (08:20)
[2020-01-07] MEDS: ACETAMINOPHEN TAB 325 MG TAB PO PRN (10:57)
--- NOTE | 2020-01-07 15:31 | PN ---
PROGRESS NOTE DATE OF SERVICE: 01/07/2020 a 64-year-old black male that was admitted to the hospital with acute rhabdomyolysis. He apparently fell at home and injured his head. It was not clear in terms of how long he was down on the ground. He had developed acute kidney injury/ATN secondary to acute rhabdomyolysis, that has improved. He is untreated hepatitis C, chronic alcoholic liver disease and alcoholism, and elevated cardiac troponin. The patient is doing reasonably well. He is not requiring any supplemental oxygen. He is feeling almost back to his normal self. The patient does drink heavily. In addition, during this episode, when he fell, he apparently thought he was snorting heroin, but apparently whatever he bought in [place] was not heroin. His drug screen was completely negative. Current vital signs are reviewed. Temperature 97.3, heart rate 78, respiratory rate 18, blood pressure 120/65, room air saturation 99%. There is no acute distress. HEENT: Examination is grossly unremarkable. Mucous membranes are dry. NECK: Supple. Full range of motion. CARDIOVASCULAR: Regular rate and rhythm. S1, S2 normal. No S3, S4, or murmur. LUNGS: Reveal mostly clear breath sounds. A few scattered rhonchi. No wheezes or crackles. ABDOMEN: Soft, bowel sounds are heard. EXTREMITIES: Intact. Mild edema. No cyanosis or clubbing. SKIN: Without rash. NEUROLOGIC: Examination is brief but nonfocal. LAB DATA: Reviewed. His most recent CK was 10,520. It has come down from 30,698. His liver function tests show an AST of 1362 and an ALT of 573. His hepatitis [employer] is quite elevated at 18,800,000. White count 3.9, hemoglobin 15.4, hematocrit 46, platelet count 135,000. PT, INR normal. Abdominal ultrasound showed coarsened hepatic echotexture corresponds to the patient underlying known hepatocellular disease. There is obscuration of the pancreas by overlying bowel gas. There is mild dilatation of the common bile duct. Microbiology is negative. Medications are reviewed. ASSESSMENT: 1. Acute rhabdomyolysis, likely secondary to a fall, after the patient snorted something which was obviously not heroin. 2. Acute kidney injury/ATN secondary to rhabdo, acute rhabdomyolysis. 3. Untreated hepatitis C with abnormal liver enzymes. 4. Alcoholic liver disease secondary to chronic alcohol abuse. 5. Elevated troponins, which may be supply-demand mismatch. PLAN: The patient will follow up with his primary doctor. I believe it is Dr. Vasquez. The patient will need followup labs. On chest x-ray when previously checked are normal. Will continue to follow closely. Prognosis is guarded. He is counseled about the importance of smoking cessation and not drinking any additional alcohol. He also should seek care for his hepatitis C, which is currently untreated. MMODL / IJN: [id number] /
--- NOTE | 2020-01-08 11:24 | DS ---
DISCHARGE SUMMARY CHIEF COMPLAINT: Acute alcohol ingestion, heroin use and rhabdomyolysis. HISTORY OF PRESENT ILLNESS AND PHYSICAL EXAM: Details of this man's history and physical can be found in the initial work up. LABORATORY STUDIES: While he was in the hospital, he had laboratory studies, details of which can be found in the laboratory section of his chart. COURSE IN THE HOSPITAL: After admission, he was placed at bedrest, started on intravenous fluids. He was treated in the Intensive Care Unit because of his acute renal failure. CK started to decline as did the muscle pain and swelling and his renal function started to improve. His blood pressure was elevated. This was gradually brought under control and it was felt that he could be discharged on the . He can go home on his usual activity and his medication. He will be seen in a day or two in the office. FINAL DIAGNOSES: 1. Rhabdomyolysis. 2. Acute renal injury. 3. Acute alcohol intoxication. 4. Alcoholism. 5. Heroin addiction. OPERATION: None. CONSULTATIONS: Nephrology. Intensive medicine. He is improved. MMJOANN / JAYYN: [id number] /
[2020-01-09 14:18] LABS: HCV Qualitative Result DETECTED (Not detected); HCV Quant Log 7.11 (<1.08)
== END 2020-01-07 12:50 | disposition home or self-care (01) | DRG 558 ==
LOC: EC 18:20 → 2SICU 23:24 → 6NMEDSUR 01-06 20:16
PROVIDERS: ADMIT Family Medicine; ATTEND Family Medicine
DX: M62.82 Rhabdomyolysis (principal); N17.9 Acute kidney failure, unspecified; K83.8 Other specified diseases of biliary tract; I95.9 Hypotension, unspecified; K70.9 Alcoholic liver disease, unspecified; B18.2 Chronic viral hepatitis C; F10.229 Alcohol dependence with intoxication, unspecified; F17.200 Nicotine dependence, unspecified, uncomplicated; I10 Essential (primary) hypertension; I45.10 Unspecified right bundle-branch block; M19.90 Unspecified osteoarthritis, unspecified site; R79.89 Other specified abnormal findings of blood chemistry; E66.9 Obesity, unspecified; Z68.26 Body mass index [BMI] 26.0-26.9, adult; Z80.1 Family history of malignant neoplasm of trachea, bronchus and lung; W19.XXXA Unspecified fall, initial encounter; Y92.009 Unspecified place in unspecified non-institutional (private) residence as the place of occurrence of the external cause
CPT/HCPCS: 36415; 70450; 71046; 72125; 76700; 80053; 80076; 80306; 80320; 81001; 82150; 82550; 82553; 83605; 83690; 83735; 84100; 84484; 85025; 85379; 85610; 85652; 85730; 86140; 86850; 86900; 86901; 87502; 87522; 87902; 93005; 93306; 96361; 96365; 96376; 99291

== ENCOUNTER 2020-03-20 15:02 | Emergency (ER) | payer OTHER ==
[2020-03-20 15:08] VITALS: RESP 18
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
[2020-03-20] MEDS ORDERED: NITROGLYCERIN SL TABS 0.4 MG TAB SUBLINGUAL STA (15:47)
--- NOTE | 2020-03-20 16:15 | XR ---
EXAMINATION TYPE: XR chest 2V DATE OF EXAM: 03/20/2020 COMPARISON: 01/03/2020 HISTORY: 65-year-old male with sudden onset midsternal chest pain and shortness of breath TECHNIQUE: PA and lateral views FINDINGS: Heart normal size. Mild elongation thoracic aorta. Pulmonary vasculature within normal limits. No con solidation or pleural effusion. There is mild interstitial prominence. IMPRESSION: Some mild interstitial prominence could reflect bronchitis or asthma. No focal infiltrate.
[2020-03-20 16:57] LABS: Basophils # (A) 0.1 k/uL (0-0.2); Basophils % (A) 1 %; Eosinophils # (A) 0.2 k/uL (0-0.7); Eosinophils % (A) 5 %; HCT 48.1 % (39.0-53.0); HGB 15.4 gm/dL (13.0-17.5); Lymphocytes # (A) 1.9 k/uL (1.0-4.8); Lymphocytes % (A) 37 %; MCH 30.8 pg (25.0-35.0); MCV 96.3 fL (80.0-100.0); Mean Platelet Volume 9.5; Monocytes # (A) 0.3 k/uL (0-1.0); Monocytes % (A) 7 %; Neutrophils # (A) 2.5 k/uL (1.3-7.7); Neutrophils % (A) 49 %; Platelet Count 145 k/uL (150-450); RBC 4.99 m/uL (4.30-5.90); RDW 12.6 % (11.5-15.5)
[2020-03-20 17:06] LABS: Amphetamine Screen,Urine Not Detected (NotDetected); Benzodiazepines Screen,Urine Not Detected (NotDetected); Cocaine Screen,Urine Not Detected (NotDetected); Methadone Screen, Urine Not Detected (NotDetected); Opiate Screen,Urine Not Detected (NotDetected); Phencyclidine Screen,Urine Not Detected (NotDetected); Tricyclic Antidepressant,Urine Not Detected (NotDetected); Urn Cannabinoid Scrn Not Detected (NotDetected)
[2020-03-20 17:07] LABS: Barbiturate Screen,Urine Not Detected (NotDetected); Oxycodone Screen, Urine Not Detected (NotDetected)
[2020-03-20 17:10] LABS: ALT 52 U/L (4-49); AST 71 U/L (17-59); African American GFR (CKD) >90 (>60 ml/min/1.73 sqM); Albumin 4.3 g/dL (3.5-5.0); Alcohol 56 mg/dL; Alkaline Phosphatase 70 U/L (38-126); Anion Gap 14 mmol/L; Blood Urea Nitrogen 11 mg/dL (9-20); Calcium 9.2 mg/dL (8.4-10.2); Carbon Dioxide 20 mmol/L (22-30); Chloride 104 mmol/L (98-107); Glucose 91 mg/dL (74-99); Magnesium 1.7 mg/dL (1.6-2.3); Non-African American GFR(CKD) >90 (>60 ml/min/1.73 sqM); Potassium 4.2 mmol/L (3.5-5.1); Sodium 138 mmol/L (137-145); Total Bilirubin 0.5 mg/dL (0.2-1.3); Total Protein 7.4 g/dL (6.3-8.2)
[2020-03-20 17:26] LABS: D-Dimer 0.25 mg/L FEU (<0.60); Partial Thromboplastin Time 21.3 sec (22.0-30.0)
[2020-03-20 19:09] VITALS: BP 127/89; PULSE 77
[2020-03-20 19:57] VITALS: TEMP 98.2
== END 2020-03-20 20:03 | disposition home or self-care (01) ==
LOC: EC 15:02
DX: F17.200 Nicotine dependence, unspecified, uncomplicated (principal); R07.9 Chest pain, unspecified
CPT/HCPCS: 36415; 93005; 85379; 83880; 80053; 83735; 84484; 85025; 85610; 85730; 80306; 71046; 99285; G0480; 80320

== ENCOUNTER 2020-09-06 09:29 | Emergency (ER) | payer OTHER ==
[2020-09-06 09:41] VITALS: RESP 17; TEMP 98.5
[2020-09-06] MEDS ORDERED: KETOROLAC 15 MG/ML 1 ML VIAL IVP STA (09:41)
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
[2020-09-06 10:38] LABS: Basophils # (A) 0.1 k/uL (0-0.2); Basophils % (A) 2 %; Eosinophils # (A) 0.3 k/uL (0-0.7); Eosinophils % (A) 7 %; HCT 51.8 % (39.0-53.0); HGB 17.1 gm/dL (13.0-17.5); Lymphocytes # (A) 1.1 k/uL (1.0-4.8); Lymphocytes % (A) 26 %; MCH 31.9 pg (25.0-35.0); MCHC 33.1 g/dL (31.0-37.0); MCV 96.5 fL (80.0-100.0); Mean Platelet Volume 8.1; Monocytes # (A) 0.4 k/uL (0-1.0); Monocytes % (A) 9 %; Neutrophils # (A) 2.4 k/uL (1.3-7.7); Neutrophils % (A) 55 %; Platelet Count 170 k/uL (150-450); RBC 5.36 m/uL (4.30-5.90); WBC 4.3 k/uL (3.8-10.6)
[2020-09-06 10:44] LABS: ALT 89 U/L (4-49); AST 184 U/L (17-59); African American GFR (CKD) >90 (>60 ml/min/1.73 sqM); Albumin 4.1 g/dL (3.5-5.0); Alkaline Phosphatase 93 U/L (38-126); Anion Gap 6 mmol/L; Blood Urea Nitrogen 12 mg/dL (9-20); Carbon Dioxide 24 mmol/L (22-30); Chloride 107 mmol/L (98-107); Creatine Kinase 228 U/L (55-170); Glucose 89 mg/dL (74-99); Magnesium 1.6 mg/dL (1.6-2.3); Non-African American GFR(CKD) >90 (>60 ml/min/1.73 sqM); Sodium 137 mmol/L (137-145); Total Bilirubin 1.1 mg/dL (0.2-1.3); Total Protein 7.1 g/dL (6.3-8.2)
--- NOTE | 2020-09-06 10:46 | XR ---
EXAMINATION TYPE: XR chest 2V DATE OF EXAM: 09/06/2020 COMPARISON: 03/20/2020 TECHNIQUE: PA and lateral views submitted. HISTORY: Chest pain FINDINGS: The lungs are clear and there is no pneumothorax, pleural effusion, or focal pneumonia. Ectasia of the aorta. Interstitium stable. Biapical pleural thickening. Metallic foreign body within the upper a bdomen stable. Metallic foreign body overlying the left chest and axilla also noted. IMPRESSION: 1. No acute process.
[2020-09-06 10:48] LABS: Potassium 4.9 mmol/L (3.5-5.1)
[2020-09-06 11:42] VITALS: PULSE 64
[2020-09-06 12:01] VITALS: BP 147/80
== END 2020-09-06 12:01 | disposition home or self-care (01) ==
LOC: EC 09:29
DX: S29.011A Strain of muscle and tendon of front wall of thorax, initial encounter (principal); S00.212A Abrasion of left eyelid and periocular area, initial encounter; M19.90 Unspecified osteoarthritis, unspecified site; F17.200 Nicotine dependence, unspecified, uncomplicated; W18.39XA Other fall on same level, initial encounter
CPT/HCPCS: 36415; 93005; 80053; 82550; 83735; 84484; 85025; 71046; 99285; 96374; J1885

== ENCOUNTER → 2020-12-03 | Outpatient (CLI) | payer OTHER ==
[2020-12-03 20:17] LABS: Hepatitis A Antibody IgM Non-Reactive (Non-Reactive); Hepatitis B Core IgM Non-Reactive (Non-Reactive); Hepatitis B Surface Antigen Non-Reactive (Non-Reactive); Hepatitis C IgG Antibody Reactive (Non-Reactive)
== END | disposition home or self-care (01) ==
LOC: LABWHC1 12:31
PROVIDERS: ATTEND Family Medicine
DX: R94.5 Abnormal results of liver function studies (principal)
CPT/HCPCS: 36415; 80074

== ENCOUNTER → 2020-12-15 | Outpatient (CLI) | payer OTHER | END | disposition home or self-care (01) | LOC: LABWHC1 10:26 | PROVIDERS: ATTEND Family Medicine | DX: B19.20 Unspecified viral hepatitis C without hepatic coma (principal) | CPT/HCPCS: 36415; 87522 ==

== ENCOUNTER → 2020-12-16 | Outpatient (CLI) | payer OTHER ==
--- NOTE | 2020-12-16 08:49 | CT ---
EXAMINATION TYPE: CT brain wo con DATE OF EXAM: 12/16/2020 COMPARISON: 01/03/2020 HISTORY: 65-year-old male R51.9 Headache, B19.20 hepatitis C TECHNIQUE: Examination was done in axial plane without intravenous contrast. Coronal and sagittal r econstructions performed. CT DLP: 1121 mGycm Automated exposure control for dose reduction was used. FINDINGS: There is no evidence of acute intracranial hemorrhage, acute ischemic changes, mass, mass-effect, or extra-axial fluid collection. There is no effacement of cerebral sulci or basal subarachnoid cister ns. There is no hydrocephalus. There is no midline shift. Kumar-white matter distinction is preserv ed. Atherosclerotic calcifications within the carotid siphons. Moderate mucosal thickening ethmoid air cells and mild within the right frontal sinus. Mastoid air ce lls well pneumatized. IMPRESSION: No acute intracranial abnormality seen.
== END | disposition home or self-care (01) ==
LOC: RADCTMAIN 08:03
PROVIDERS: ATTEND Family Medicine
DX: R51.9 Headache, unspecified (principal)
CPT/HCPCS: 70450

== ENCOUNTER → 2021-03-08 | Outpatient (CLI) | payer OTHER | END | disposition home or self-care (01) | LOC: LABWHC1 12:24 | PROVIDERS: ATTEND Family Medicine | DX: Z20.822 Contact with and (suspected) exposure to COVID-19 (principal); R06.02 Shortness of breath; R43.2 Parageusia; R09.89 Other specified symptoms and signs involving the circulatory and respiratory systems; R05 Cough | CPT/HCPCS: U0003; C9803; U0005 ==

== ENCOUNTER 2021-04-07 17:24 | Emergency (ER) | payer OTHER ==
[2021-04-07 17:34] VITALS: BP 147/85; PULSE 98; RESP 18; TEMP 98.1
[2021-04-07] MEDS ORDERED: DIPH,PERTUS(ACELL)TETVAC-LF 0.5 ML VIAL IM ONE (17:47)
[2021-04-07] MEDS ORDERED: ACETAMINOPHEN TAB 500 MG TAB PO STA (18:08)
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
--- NOTE | 2021-04-07 18:36 | XR ---
PROCEDURE: XR finger LT - 3V DATE AND TIME: 04/07/2021 6:18 PM CLINICAL INDICATION: PHH; Thumb injury TECHNIQUE: Department protocol COMPARISON: None FINDINGS: There is some soft tissue swelling. There is no fracture. There are prominent osteoarthritis changes at the thumb MCP, with mild subluxation. IMPRESSION: Soft tissue swelling.
== END 2021-04-07 18:59 | disposition home or self-care (01) ==
LOC: EC 17:24
DX: S62.522B Displaced fracture of distal phalanx of left thumb, initial encounter for open fracture (principal); M19.90 Unspecified osteoarthritis, unspecified site; F17.200 Nicotine dependence, unspecified, uncomplicated; W20.8XXA Other cause of strike by thrown, projected or falling object, initial encounter
CPT/HCPCS: 90471; 90715; 99283

== ENCOUNTER 2021-11-03 07:29 | Day surgery (SDC) | payer MEDICARE, OTHER ==
[2021-11-01 09:04] VITALS: BMI 27.1
[2021-11-03] MEDS ORDERED: LIDOCAINE 1% (10MG/ML) FOR IV START INTRADERMA PRN (07:35)
[2021-11-03] MEDS ORDERED: LACTATED RINGERS 1,000 ML IV SCH (07:35)
[2021-11-03 08:38] VITALS: TEMP 96.8
[2021-11-03] MEDS ORDERED: PROPOFOL 10 MG/ML 20 ML VIAL IV ONE (09:24)
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
--- NOTE | 2021-11-03 09:41 | P.OP ---
Date of Procedure: 11/03/21 Preoperative Diagnosis: Screening colonoscopy Postoperative Diagnosis: Normal colon Procedure(s) Performed: Colonoscopy Anesthesia: MAC Surgeon: Harmeet Ware Pathology: none sent Condition: stable Disposition: PACU Description of Procedure: PROCEDURE: The patient was placed on the endoscopy table in the lateral position. Digital rectal examination was performed which revealed no abnormalities. The prostate was symmetrical without nodules. Flexible colonoscope was then placed in the patient's anus and passed throughout the entire colon. The ileocecal valve was visualized. The cecum, ascending, transverse, descending and sigmoid colon were normal. The rectum was normal as well. There were no masses, polyps or diverticula noted in the entire colon. SUMMARY OF FINDINGS: Normal colonoscopy.
[2021-11-03 10:08] VITALS: BP 122/71; PULSE 78; RESP 18
== END 2021-11-03 10:22 | disposition home or self-care (01) ==
LOC: ORWHC2ENDO 07:29
PROVIDERS: ATTEND Surgery
DX: Z12.11 Encounter for screening for malignant neoplasm of colon (principal); K21.9 Gastro-esophageal reflux disease without esophagitis; M19.90 Unspecified osteoarthritis, unspecified site; F17.210 Nicotine dependence, cigarettes, uncomplicated
CPT/HCPCS: G0121; J2704

== ENCOUNTER 2022-02-03 11:18 | Emergency (ER) | payer MEDICARE, OTHER ==
[2022-02-03 11:26] VITALS: TEMP 98.6
[2022-02-03] MEDS ORDERED: ASPIRIN 81 MG PO STA (11:48)
[2022-02-03 12:04] LABS: Basophils # (A) 0.1 k/uL (0-0.2); Basophils % (A) 2 %; Eosinophils # (A) 0.3 k/uL (0-0.7); Eosinophils % (A) 7 %; HCT 50.3 % (39.0-53.0); HGB 16.8 gm/dL (13.0-17.5); Lymphocytes # (A) 1.4 k/uL (1.0-4.8); Lymphocytes % (A) 30 %; MCH 31.2 pg (25.0-35.0); MCHC 33.5 g/dL (31.0-37.0); MCV 93.2 fL (80.0-100.0); Mean Platelet Volume 8.9; Monocytes # (A) 0.4 k/uL (0-1.0); Monocytes % (A) 9 %; Neutrophils # (A) 2.3 k/uL (1.3-7.7); Neutrophils % (A) 51 %; Platelet Count 214 k/uL (150-450); RDW 12.1 % (11.5-15.5); WBC 4.5 k/uL (3.8-10.6)
--- NOTE | 2022-02-03 12:19 | XR ---
EXAMINATION TYPE: XR chest 2V DATE OF EXAM: 02/03/2022 COMPARISON: 09/06/2020 HISTORY: Shortness of breath TECHNIQUE: Frontal and lateral views of the chest are obtained. FINDINGS: Scattered senescent parenchymal changes noted. No evidence for infiltrate. No evidence for atelectasis. Heart size is stable. Mediastinal structures are stable and grossly unremarkable. No evidence for hilar prominence. Degenerative changes dorsal spine. IMPRESSION: 1. No evidence for acute pulmonary disease.
[2022-02-03 12:22] LABS: Albumin 4.6 g/dL (3.5-5.0); Calcium 9.6 mg/dL (8.4-10.2); Magnesium 1.7 mg/dL (1.6-2.3); Potassium 3.5 mmol/L (3.5-5.1); Total Bilirubin 0.7 mg/dL (0.2-1.3)
[2022-02-03 12:36] LABS: INR 0.9 (<1.2)
[2022-02-03 12:37] LABS: Partial Thromboplastin Time 24.5 sec (22.0-30.0); Prothrombin Time 10.3 sec (9.0-12.0)
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
[2022-02-03 13:06] VITALS: BP 134/68; PULSE 79; RESP 18
== END 2022-02-03 13:09 | disposition home or self-care (01) ==
LOC: EC 11:18
DX: R00.2 Palpitations (principal); F17.200 Nicotine dependence, unspecified, uncomplicated; Z20.822 Contact with and (suspected) exposure to COVID-19
CPT/HCPCS: 36415; 71046; 80053; 83735; 84484; 85025; 85379; 85610; 85730; 87502; 87635; 93005; 99285

== ENCOUNTER 2022-02-12 08:56 | Emergency (ER) | payer MEDICARE, OTHER ==
[2022-02-12 09:06] VITALS: BP 114/80; PULSE 101; RESP 18; TEMP 98.2
[2022-02-12] MEDS ORDERED: KETOROLAC 15 MG/ML 1 ML VIAL IM STA (09:26)
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
== END 2022-02-12 10:00 | disposition home or self-care (01) ==
LOC: EC 08:56
DX: F17.200 Nicotine dependence, unspecified, uncomplicated (principal); K04.7 Periapical abscess without sinus
CPT/HCPCS: 41800; 99282; 96372; J1885; 40800

== ENCOUNTER 2022-03-25 10:13 | Emergency (ER) | payer MEDICARE, OTHER ==
[2022-03-25] MEDS ORDERED: SODIUM CHLORIDE 0.9% 1,000 ML IV STA (10:27)
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
[2022-03-25 10:58] LABS: Basophils % (A) 1 %; Eosinophils % (A) 1 %; HGB 16.4 gm/dL (13.0-17.5); Lymphocytes # (A) 1.1 k/uL (1.0-4.8); Lymphocytes % (A) 32 %; MCH 30.4 pg (25.0-35.0); MCHC 32.9 g/dL (31.0-37.0); MCV 92.5 fL (80.0-100.0); Mean Platelet Volume 8.8; Monocytes # (A) 0.2 k/uL (0-1.0); Monocytes % (A) 5 %; Neutrophils # (A) 2.1 k/uL (1.3-7.7); Neutrophils % (A) 60 %; Platelet Count 214 k/uL (150-450); RBC 5.41 m/uL (4.30-5.90); WBC 3.4 k/uL (3.8-10.6)
[2022-03-25 11:17] LABS: Potassium 3.5 mmol/L (3.5-5.1)
[2022-03-25 11:18] LABS: Albumin 4.3 g/dL (3.5-5.0); Calcium 9.2 mg/dL (8.4-10.2); Magnesium 1.7 mg/dL (1.6-2.3); Total Bilirubin 1.2 mg/dL (0.2-1.3); Total Protein 7.7 g/dL (6.3-8.2)
[2022-03-25] MEDS ORDERED: BEBTELOVIMAB (EUA) 175 MG/2 ML VIAL IV ONE (12:45)
[2022-03-25 13:01] VITALS: RESP 14
[2022-03-25 13:55] VITALS: BP 99/63; PULSE 60; TEMP 98.2
== END 2022-03-25 14:06 | disposition home or self-care (01) ==
LOC: EC 10:13
DX: U07.1 COVID-19 (principal); F17.200 Nicotine dependence, unspecified, uncomplicated
CPT/HCPCS: 36415; 93005; 80053; 83605; 83735; 85025; 87636; 99284; 96360; 96361; Q0222

== ENCOUNTER 2022-03-30 07:48 | Emergency (ER) | payer MEDICARE, OTHER ==
[2022-03-30 07:56] VITALS: BP 142/96; PULSE 78; RESP 16; TEMP 97.5
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
== END 2022-03-30 08:56 | disposition home or self-care (01) ==
LOC: EC 07:48
DX: U07.1 COVID-19 (principal); F17.200 Nicotine dependence, unspecified, uncomplicated
CPT/HCPCS: 99283

== ENCOUNTER 2023-04-05 19:49 | Emergency (ER) | payer MEDICARE, OTHER ==
[2023-04-05 20:00] VITALS: BP 127/86; PULSE 86; RESP 16; TEMP 98
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
[2023-04-05] MEDS ORDERED: CEPHALEXIN 500 MG CAP PO STA (20:34)
== END 2023-04-05 20:45 | disposition home or self-care (01) ==
LOC: EC 19:49
DX: S90.421A Blister (nonthermal), right great toe, initial encounter (principal); F17.200 Nicotine dependence, unspecified, uncomplicated; F12.90 Cannabis use, unspecified, uncomplicated; F11.20 Opioid dependence, uncomplicated; X58.XXXA Exposure to other specified factors, initial encounter
CPT/HCPCS: 99282

== ENCOUNTER 2023-05-25 07:00 | Inpatient (IN) | payer MEDICARE, OTHER ==
[2023-05-25 07:06] VITALS: TEMP 98.3
[2023-05-25] MEDS ORDERED: NITROGLYCERIN OINT 1 INCH/GM PACKET TOPICAL STA (07:22)
[2023-05-25] MEDS ORDERED: ASPIRIN 81 MG PO STA (07:22)
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
[2023-05-25 07:39] LABS: Basophils % (A) 0 %; Eosinophils # (A) 0.5 k/uL (0-0.7); Eosinophils % (A) 10 %; HCT 41.2 % (39.0-53.0); HGB 13.7 gm/dL (13.0-17.5); Lymphocytes # (A) 1.2 k/uL (1.0-4.8); Lymphocytes % (A) 27 %; MCHC 33.3 g/dL (31.0-37.0); MCV 99.2 fL (80.0-100.0); Mean Platelet Volume 8.1; Monocytes # (A) 0.3 k/uL (0-1.0); Monocytes % (A) 7 %; Neutrophils # (A) 2.5 k/uL (1.3-7.7); Neutrophils % (A) 55 %; Platelet Count 214 k/uL (150-450); RBC 4.16 m/uL (4.30-5.90); RDW 12.9 % (11.5-15.5); WBC 4.6 k/uL (3.8-10.6)
[2023-05-25 07:48] LABS: INR 0.9 (<1.2); Partial Thromboplastin Time 22.2 sec (22.0-30.0)
[2023-05-25 08:04] LABS: ALT 36 U/L (4-49); AST 64 U/L (17-59); African American GFR (CKD) 84 (>60 ml/min/1.73 sqM); Albumin 3.7 g/dL (3.5-5.0); Alkaline Phosphatase 112 U/L (38-126); Anion Gap 8 mmol/L; Blood Urea Nitrogen 19 mg/dL (9-20); Calcium 8.9 mg/dL (8.4-10.2); Carbon Dioxide 18 mmol/L (22-30); Chloride 113 mmol/L (98-107); Glucose 108 mg/dL (74-99); Magnesium 1.8 mg/dL (1.6-2.3); Non-African American GFR(CKD) 73 (>60 ml/min/1.73 sqM); Potassium 3.2 mmol/L (3.5-5.1); Sodium 139 mmol/L (137-145); Total Bilirubin 0.4 mg/dL (0.2-1.3); Total Protein 6.4 g/dL (6.3-8.2)
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
[2023-05-25] MEDS ORDERED: NITROGLYCERIN SL TABS 0.4 MG TAB SUBLINGUAL PRN (08:56)
[2023-05-25] MEDS ORDERED: POTASSIUM CHLORIDE ER 20 MEQ TAB.ER PO STA (08:59)
[2023-05-25] MEDS ORDERED: amLODIPine 5 MG TAB PO SCH (11:30)
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
[2023-05-25] MEDS ORDERED: NITROGLYCERIN OINT 1 INCH/GM PACKET TOPICAL SCH (12:00)
[2023-05-25 12:54] VITALS: BP 122/84
--- NOTE | 2023-05-25 13:11 | CA ---
Stress Echo Report Titi Camargo Age: 68 Gender: M : 1955 Exam Date: 05/25/2023 12:02 Exam Location: [facility] Ht (in): 71 Wt (lb): 190 Ordering Physician: Zenia Whitlock Referring Physician: [id number] Bailey Pilot Plant Technician: MAGGIE Technologist Procedure CPT: Indication: CP ICD-9 Codes: Rhythm: Patient History: Cardiac Medications: see chart Medications in past 24 hours: Contrast: Stress Results Protocol: Viet Total dose(mL): Exercise Duration (min:sec): 10:[address] Depression (mm): Angina Score: Hernandez Score: METS: 12.1 Resting HR: 74 Resting BP: 125 / 95 Peak HR: 141 Peak BP: 167 / 85 Max Predicted HR: 153 92 % Max Predicted HR Target HR: 130 Double Product: [id number] Stress Summary: BP Response: Reason for Termination: MAX EXERTION/TARGET HR Cardiac Symptoms: NO SYMPTOMS ECG Analysis Resting ECG: Stress ECG: Arrhythmia: Echo Analysis Resting Echo: Peak Echo Analysis: MEASUREMENTS (Male/Female) Normal Values CONCLUSIONS Baseline EKG revealed a normal sinus rhythm with a right bundle branch block pattern incomplete. Patient walked on standard Viet protocol for 10 minutes 30 seconds and achieved a maximal heart rate of 141 bpm. Resting heart rate was 74 bpm. Peak blood pressure was 167/85. He did not have any angina. There were no EKG changes to indicate ischemia. There is no arrhythmia. This is a negative stress test with excellent exercise capacity Baseline echo images revealed normal wall motion wall thickening of all segments. At peak exercise there was good augmentation of the front wall motion wall thickening of all segments suggesting that there is no evidence of any stress-induced ischemia on this study. Final impression: #1 normal stress test by EKG criteria with excellent exercise capacity. #[address] Blossom Thompson MD (Electronically Signed) Final Date: 25 May 2023 13:10
[2023-05-25 15:21] VITALS: PULSE 60; RESP 18
--- NOTE | 2023-05-25 22:00 | HP ---
HISTORY AND PHYSICAL CHIEF COMPLAINT: Chest pain. HISTORY OF PRESENT ILLNESS: This is another admission for this 68-year-old male. He presented to the emergency room with chest pain. He describes it as being "sharp". He had no associated diaphoresis, shortness of breath, radiation of the pain, etc. Studies in the emergency room were normal. REVIEW OF SYSTEMS: He has otherwise had no complaints or problems. Past medical history, family history, and personal and social histories reveal that he does drink a lot of alcohol. He is not allergic to any medication. He does take Flexeril, Motrin occasionally, and he is on chlorthalidone and amlodipine. He has a history of hepatitis C. He does continue to smoke. PHYSICAL EXAMINATION: VITAL SIGNS: Blood pressure is 132/82 with a pulse 68, respirations of 30, and he is afebrile. GENERAL: He appears to be well developed and well nourished, in no acute distress. SKIN: Color is normal. Skin is warm and dry. LYMPHATICS: Lymph nodes are not enlarged. HEAD, EARS, EYES, NOSE, MOUTH, AND THROAT: Normal. NECK: Neck veins are not distended. Thyroid is not enlarged. CHEST: Clear. CARDIAC: Normal. ABDOMEN: Soft and nontender. EXTREMITIES: Normal. NEUROLOGIC: He is intact. DIAGNOSES: He is admitted to the hospital with diagnoses of: 1. Chest pain. 2. History of hypertension. 3. History of alcoholism. PLAN: 1. Bed rest. 2. IV fluids. 3. Serial EKGs and enzymes. 4. Cardiology consult. MMODL / IJN: [id number] /
[2023-05-26] MEDS ORDERED: ASPIRIN 81 MG PO SCH (09:00)
[2023-05-26] MEDS ORDERED: ASPIRIN 325 MG TAB PO SCH (09:00)
--- NOTE | 2023-05-26 10:29 | CA ---
Transthoracic Echo Report Name: Titi Camargo Age: 68 Gender: M : 1955 Exam Date: 05/25/2023 12:21 Exam Location: [facility] Echo Ht (in): 71 Wt (lb): 190 Ordering Physician: Zenia Whitlock Attending/Referring Phys: [id number], Kamlesh Water Plant Pump Operator Supervisor Jolynn Scanlon RDCS Procedure CPT: Indications: LV function Cardiac Hx: Technical Quality: Good Contrast 1: Total Dose (mL): Contrast 2: Total Dose (mL): MEASUREMENTS (Male / Female) Normal Values 2D ECHO LV Diastolic Diameter PLAX 5.4 cm 4.2 - 5.9 / 3.9 - 5.3 cm LV Systolic Diameter PLAX 3.1 cm IVS Diastolic Thickness 1.1 cm 0.6 - 1.0 / 0.6 - 0.9 cm LVPW Diastolic Thickness 1.1 cm 0.6 - 1.0 / 0.6 - 0.9 cm LV Relative Wall Thickness 0.4 RV Internal Dim ED PLAX 3.1 cm LA Systolic Diameter LX 3.8 cm 3.0 - 4.0 / 2.7 - 3.8 cm LV Diastolic Volume MOD 4C 112.1 cm??? LV Systolic Volume MOD 4C 41.9 cm??? LV Ejection Fraction MOD 4C 62.6 % LV Cardiac Index MOD 4C 2485.6 cm???/min???m??? LV Diastolic Length 4C 8.6 cm LV Systolic Length 4C 6.6 cm LV Diastolic Volume MOD 2C 79.3 cm??? LV Systolic Volume MOD 2C 26.9 cm??? LV Ejection Fraction MOD 2C 66.1 % LV Cardiac Index MOD 2C 1855.9 cm???/min???m??? LV Diastolic Length 2C 8.7 cm LV Systolic Length 2C 6.8 cm LA Volume 68.6 cm??? 18 - 58 / 22 - 52 cm??? M-MODE Aortic Root Diameter MM 3.2 cm MV E Point Septal Separation 0.5 cm AV Cusp Separation MM 2.2 cm DOPPLER AV Peak Velocity 151.7 cm/s AV Peak Gradient 9.2 mmHg MV Area PHT 3.0 cm??? Mitral E Point Velocity 78.8 cm/s Mitral A Point Velocity 56.2 cm/s Mitral E to A Ratio 1.4 MV Deceleration Time 252.3 ms MV E' Velocity 11.7 cm/s Mitral E to MV E' Ratio 6.7 TR Peak Velocity 200.0 cm/s TR Peak Gradient 16.0 mmHg Right Ventricular Systolic Press 20.6 mmHg FINDINGS Left Ventricle Left ventricular ejection fraction is estimated at 55-60 %. Left ventricular cavity size normal. Left ventricular wall thickness normal. Normal left ventricular wall motion. Right Ventricle Normal right ventricular size and function. Right Atrium Normal right atrial size. Left Atrium Mildly increased left atrial volume. Mitral Valve Structurally normal mitral valve. Trace mitral regurgitation. Aortic Valve Trileaflet aortic valve. Aortic valve sclerosis. No aortic regurgitation. Tricuspid Valve Structurally normal tricuspid valve. Mild tricuspid regurgitation. Pulmonic Valve Structurally normal pulmonic valve. No pulmonic regurgitation. Pericardium Normal pericardium. No pericardial effusion. Aorta Normal size aortic root and proximal ascending aorta. CONCLUSIONS Normal LV systolic function Previewed by: Dr. Gamal Isidro MD (Electronically Signed) Final Date: 26 May 2023 10:28
--- NOTE | 2023-05-29 21:54 | HP ---
HISTORY AND PHYSICAL CHIEF COMPLAINT: Chest pain. HISTORY OF PRESENT ILLNESS: This is another admission for this 68-year-old gentleman, who came in with a sharp anterior chest pain, not associated with shortness of breath or diaphoresis. He was not nauseated. In the emergency room, troponins were normal. REVIEW OF SYSTEMS: Otherwise, unremarkable. Past medical history, family history, and personal and social histories are all otherwise unremarkable and noncontributory. He does have a history of hypertension and takes chlorthalidone. He also uses Flexeril occasionally. He is on amlodipine 5 mg once a day as well. He does consume fairly large amount of alcohol on a regular basis. PHYSICAL EXAMINATION: VITAL SIGNS: Blood pressure is 138/88 with a pulse of 84, respirations 29. He is afebrile. GENERAL: Appeared to be in no acute distress. SKIN: Color is normal. Skin is warm and dry. LYMPHATICS: Lymph nodes are not enlarged. HEAD, EARS, EYES, NOSE, MOUTH, AND THROAT: Normal. Neck veins are not distended. Thyroid is not enlarged. CHEST: Clear. Chest wall is nontender. CARDIAC: Normal. ABDOMEN: Soft and nontender. EXTREMITIES: Normal. NEUROLOGIC: He is intact. DIAGNOSES: He is admitted to the hospital with diagnoses of: 1. Chest pain. 2. History of hypertension. 3. History of alcoholism. PLAN: 1. Bedrest. 2. IV fluids. 3. Serial EKGs and enzymes. 4. Cardiology consult. MMODL / IJN: [id number] /
== END 2023-05-25 15:37 | disposition left against medical advice (07) | DRG 313 ==
LOC: EC 07:00 → 3SCARD 08:56
PROVIDERS: ADMIT Family Medicine; ATTEND Family Medicine
DX: R07.9 Chest pain, unspecified (principal); E87.6 Hypokalemia; Z53.29 Procedure and treatment not carried out because of patient's decision for other reasons; K21.9 Gastro-esophageal reflux disease without esophagitis; F10.20 Alcohol dependence, uncomplicated; F17.210 Nicotine dependence, cigarettes, uncomplicated; I45.10 Unspecified right bundle-branch block; I10 Essential (primary) hypertension; M19.90 Unspecified osteoarthritis, unspecified site; I08.1 Rheumatic disorders of both mitral and tricuspid valves; Z79.899 Other long term (current) drug therapy; Z87.19 Personal history of other diseases of the digestive system
CPT/HCPCS: 36415; 71046; 80053; 80320; 83735; 84484; 85025; 85610; 85730; 93005; 93306; 93351

== ENCOUNTER 2023-06-10 16:28 | Emergency (ER) | payer MEDICARE, OTHER ==
[2023-06-10 16:36] VITALS: TEMP 98.1
[2023-06-10] MEDS ORDERED: MECLIZINE 12.5 MG TAB PO STA (17:03)
[2023-06-10] MEDS ORDERED: SODIUM CHLORIDE 0.9% 1,000 ML IV ONE (17:03)
[2023-06-10 17:24] LABS: Basophils % (A) 0 %; Eosinophils # (A) 0.3 k/uL (0-0.7); Eosinophils % (A) 6 %; HCT 43.8 % (39.0-53.0); HGB 15.2 gm/dL (13.0-17.5); Lymphocytes # (A) 1.4 k/uL (1.0-4.8); Lymphocytes % (A) 29 %; MCH 34.4 pg (25.0-35.0); MCHC 34.6 g/dL (31.0-37.0); MCV 99.3 fL (80.0-100.0); Mean Platelet Volume 9.2; Monocytes # (A) 0.3 k/uL (0-1.0); Monocytes % (A) 6 %; Neutrophils # (A) 2.9 k/uL (1.3-7.7); Neutrophils % (A) 57 %; Platelet Count 189 k/uL (150-450); RBC 4.41 m/uL (4.30-5.90); RDW 12.7 % (11.5-15.5); WBC 5.1 k/uL (3.8-10.6)
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
[2023-06-10 17:34] LABS: ALT 46 U/L (4-49); AST 90 U/L (17-59); African American GFR (CKD) 83 (>60 ml/min/1.73 sqM); Alkaline Phosphatase 87 U/L (38-126); Anion Gap 10 mmol/L; Blood Urea Nitrogen 18 mg/dL (9-20); Carbon Dioxide 19 mmol/L (22-30); Chloride 112 mmol/L (98-107); Glucose 118 mg/dL (74-99); Magnesium 1.8 mg/dL (1.6-2.3); Non-African American GFR(CKD) 72 (>60 ml/min/1.73 sqM); Potassium 3.7 mmol/L (3.5-5.1); Sodium 141 mmol/L (137-145); Total Bilirubin 0.6 mg/dL (0.2-1.3); Total Protein 6.8 g/dL (6.3-8.2)
[2023-06-10 19:06] VITALS: BP 140/83; PULSE 98; RESP 20
== END 2023-06-10 19:06 | disposition home or self-care (01) ==
LOC: EC 16:28
DX: H81.10 Benign paroxysmal vertigo, unspecified ear (principal); I10 Essential (primary) hypertension; F17.200 Nicotine dependence, unspecified, uncomplicated; F12.90 Cannabis use, unspecified, uncomplicated; F11.90 Opioid use, unspecified, uncomplicated; Z79.899 Other long term (current) drug therapy
CPT/HCPCS: 36415; 80053; 83735; 84484; 85025; 93005; 96360; 99284

== ENCOUNTER 2023-07-04 23:12 | Emergency (ER) | payer MEDICARE, OTHER ==
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
[2023-07-04 23:39] VITALS: TEMP 98.3
[2023-07-05 00:06] LABS: Basophils % (A) 1 %; Eosinophils # (A) 0.5 k/uL (0-0.7); Eosinophils % (A) 12 %; HCT 45.5 % (39.0-53.0); HGB 15.2 gm/dL (13.0-17.5); Lymphocytes # (A) 1.4 k/uL (1.0-4.8); Lymphocytes % (A) 30 %; MCH 33.1 pg (25.0-35.0); MCHC 33.4 g/dL (31.0-37.0); MCV 99.1 fL (80.0-100.0); Mean Platelet Volume 9.1; Monocytes # (A) 0.3 k/uL (0-1.0); Monocytes % (A) 6 %; Neutrophils # (A) 2.3 k/uL (1.3-7.7); Neutrophils % (A) 50 %; Platelet Count 138 k/uL (150-450); RBC 4.59 m/uL (4.30-5.90); RDW 13.3 % (11.5-15.5); WBC 4.6 k/uL (3.8-10.6)
[2023-07-05 00:30] LABS: Partial Thromboplastin Time 24.7 sec (22.0-30.0); Prothrombin Time 10.6 sec (9.0-12.0)
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
[2023-07-05 02:08] LABS: ALT 58 U/L (4-49); AST 96 U/L (17-59); African American GFR (CKD) >90 (>60 ml/min/1.73 sqM); Albumin 3.5 g/dL (3.5-5.0); Alkaline Phosphatase 117 U/L (38-126); Anion Gap 7 mmol/L; Blood Urea Nitrogen 15 mg/dL (9-20); Calcium 8.6 mg/dL (8.4-10.2); Carbon Dioxide 20 mmol/L (22-30); Chloride 111 mmol/L (98-107); Glucose 102 mg/dL (74-99); Magnesium 1.6 mg/dL (1.6-2.3); Non-African American GFR(CKD) 89 (>60 ml/min/1.73 sqM); Potassium 3.6 mmol/L (3.5-5.1); Sodium 138 mmol/L (137-145); Total Bilirubin 0.7 mg/dL (0.2-1.3); Total Protein 6.3 g/dL (6.3-8.2)
[2023-07-05 02:40] VITALS: BP 144/104; PULSE 53; RESP 19
== END 2023-07-05 02:50 | disposition home or self-care (01) ==
LOC: EC 23:12
DX: R07.89 Other chest pain (principal); M19.90 Unspecified osteoarthritis, unspecified site; F17.200 Nicotine dependence, unspecified, uncomplicated; Z79.1 Long term (current) use of non-steroidal anti-inflammatories (NSAID)
CPT/HCPCS: 36415; 71046; 80053; 83735; 84484; 85025; 85610; 85730; 93005; 99285

== ENCOUNTER 2023-07-17 13:30 | Emergency (ER) | payer MEDICARE, OTHER ==
[2023-07-17 14:11] VITALS: RESP 16
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
--- NOTE | 2023-07-17 14:55 | XR ---
EXAMINATION TYPE: XR femur RT DATE OF EXAM: 07/17/2023 2:45 PM INDICATION: Patient age:Male; 68 years old; Reason for study: Pain; COMPARISON: None TECHNIQUE: The right femur was examined in lateral projections. FINDINGS: No evidence of acute osseous pathology, joint dislocation, or soft tissue swelling . No ly tic or sclerotic lesions identified. Multiple pelvic phleboliths. Vascular sclerosis. IMPRESSION: No acute osseous pathology.
--- NOTE | 2023-07-17 16:12 | US ---
EXAMINATION TYPE: US venous doppler duplex LE RT DATE OF EXAM: 07/17/2023 4:05 PM COMPARISON: NONE CLINICAL INDICATION: Male, 68 years old with history of Right leg pain; SIDE PERFORMED: Right TECHNIQUE: The lower extremity deep venous system is examined utilizing real time linear array sonog madelin with graded compression, doppler sonography and color-flow sonography. VESSELS IMAGED: Common Femoral Vein Deep Femoral Vein Greater Saphenous Vein * Femoral Vein Popliteal Vein Small Saphenous Vein * Proximal Calf Veins (* superficial vessels) Grayscale, color doppler, spectral doppler imaging performed of the deep veins of the right lower ext remity. There is normal flow, compressibility, vascular waveforms. Right Leg: Negative for DVT IMPRESSION: No deep venous thrombosis of the right lower extremity.
[2023-07-17] MEDS ORDERED: ACET/COD 300 MG/30 MG STARTER PACK 6 TAB BTL PO STA (16:19)
[2023-07-17 16:48] VITALS: BP 149/92; PULSE 78; TEMP 97.6
== END 2023-07-17 16:47 | disposition home or self-care (01) ==
LOC: EC 13:30
DX: M79.604 Pain in right leg (principal); M19.90 Unspecified osteoarthritis, unspecified site; F17.200 Nicotine dependence, unspecified, uncomplicated; Z79.899 Other long term (current) drug therapy; W19.XXXA Unspecified fall, initial encounter; Y99.0 Civilian activity done for income or pay
CPT/HCPCS: 99284

== ENCOUNTER 2023-10-29 11:09 | Inpatient (IN) | payer MEDICARE, OTHER ==
[2023-10-29] MEDS ORDERED: SODIUM CHLORIDE 0.9% 1,000 ML IV ONE (11:41)
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
[2023-10-29 12:04] LABS: Glucose,Whole Blood 84 mg/dL (70-110)
[2023-10-29 12:13] LABS: Basophils % (A) 1 %; Eosinophils # (A) 0.3 k/uL (0-0.7); Eosinophils % (A) 5 %; HCT 49.4 % (39.0-53.0); HGB 16.3 gm/dL (13.0-17.5); Lymphocytes # (A) 1.6 k/uL (1.0-4.8); Lymphocytes % (A) 30 %; MCH 31.2 pg (25.0-35.0); MCV 94.4 fL (80.0-100.0); Mean Platelet Volume 8.8; Monocytes # (A) 0.3 k/uL (0-1.0); Monocytes % (A) 6 %; Neutrophils % (A) 56 %; Platelet Count 228 k/uL (150-450); RBC 5.23 m/uL (4.30-5.90); WBC 5.3 k/uL (3.8-10.6)
[2023-10-29 12:29] LABS: INR 1.2 (<1.2)
[2023-10-29 12:30] LABS: Partial Thromboplastin Time 25.6 sec (22.0-30.0); Prothrombin Time 12.6 sec (10.0-12.5)
[2023-10-29 12:39] LABS: ALT 44 U/L (4-49); AST 92 U/L (17-59); African American GFR (CKD) 76 (>60 ml/min/1.73 sqM); Albumin 4.9 g/dL (3.5-5.0); Alcohol <10 mg/dL; Alkaline Phosphatase 75 U/L (38-126); Anion Gap 16 mmol/L; Blood Urea Nitrogen 20 mg/dL (9-20); Carbon Dioxide 19 mmol/L (22-30); Chloride 105 mmol/L (98-107); Glucose 88 mg/dL (74-99); Non-African American GFR(CKD) 65 (>60 ml/min/1.73 sqM); Potassium 3.8 mmol/L (3.5-5.1); Sodium 140 mmol/L (137-145); Total Protein 8.2 g/dL (6.3-8.2)
--- NOTE | 2023-10-29 12:42 | CT ---
EXAMINATION TYPE: CT brain wo con DATE OF EXAM: 10/29/2023 COMPARISON: 12/16/2020 HISTORY: ams CT DLP: 1154 mGycm Automated exposure control for dose reduction was used. FINDINGS: There is no evidence of midline shift or acute hemorrhage. There is low-attenuation within the anteri or limb of the internal capsule on the right. Mild generalized degenerative change. Calvarium is intact. Changes of moderate chronic sinusitis. Craniocervical junction is maintained. Orbits are symmetric. Intracranial atherosclerotic changes. Th ere is prominence of the basilar tip. . IMPRESSION: 1. Area of low attenuation involving the anterior limb of the right internal capsule. Acute ischemia in the differential diagnoses recommend correlation with MRI. 2. Prominence of the basilar tip follow up MRA [facility] of [place] to exclude small aneurysm.
[2023-10-29] MEDS ORDERED: ASPIRIN 325 MG TAB PO STA (13:35)
[2023-10-29] MEDS ORDERED: ACETAMINOPHEN TAB 325 MG TAB PO PRN (14:25)
[2023-10-29] MEDS ORDERED: NALOXONE 0.4 MG/ML 1 ML VIAL IV PRN (14:25)
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
[2023-10-29] MEDS: THIAMINE 100 MG TAB PO SCH (17:51)
[2023-10-29 18:12] LABS: Bilirubin,Urine Negative (Negative); Blood,Urine Negative (Negative); Color,Urine Light Yellow; Glucose,Urine (UA) Negative (Negative); Ketones,Urine Negative (Negative); Leukocyte Esterase,Urine Negative (Negative); Nitrite,Urine Negative (Negative); PH, Urine 6.5 (5.0-8.0); Protein,Urine Negative (Negative)
[2023-10-29 18:16] LABS: Mucus,Urine Rare /hpf; RBC,Urine <1 /hpf (0-5)
[2023-10-29 18:18] LABS: Appearance,Urine Slightly Cloudy (Clear)
--- NOTE | 2023-10-29 18:20 | CT ---
EXAMINATION TYPE: CT angio head neck CT DLP: 1052.3 mGycm, Automated exposure control for dose reduction was used. DATE OF EXAM: 10/29/2023 5:54 PM COMPARISON: 10/29/2023 CLINICAL INDICATION:Male, 68 years old with history of ?basilar aneurysm on CT; PHH, ams TECHNIQUE: Axially acquired helical CT angiogram of the head and neck was obtained with contrast. Axi al images are supplemented with 3D reconstructions and MIP images which were post-processed at an in dependent workstation. NASCET criteria used. Contrast used:65cc mL of Isovue 370 with IV Contrast, Oral contrast used: None. FINDINGS: CTA HEAD: No evidence of acute intracranial hemorrhage, mass effect, or midline shift. The ventricles, sulci, a nd cisterns are unremarkable. The visualized portions of the internal carotid arteries, middle cerebral arteries, anterior cerebral arteries, and posterior cerebral arteries are patent. Atherosclerosis of the carotid siphons. The ba silar tip demonstrates 4 vessels originating off the termination of the basilar artery. The basilar and vertebral arteries are patent. CTA NECK: Right Carotid System: The common carotid and external carotid arteries are patent. There is less than 25% stenosis at the c arotid bifurcation secondary to calcified/noncalcified plaque. The rest of the internal carotid arter y is patent. Left Carotid System: The common carotid and external carotid arteries are patent. There is less than 25% stenosis at the c arotid bifurcation secondary to calcified/noncalcified plaque. The rest of the internal carotid arter y is patent. Vertebral arteries are patent without evidence hemodynamically significant stenosis. There is a three-vessel aortic arch. The origins of the great vessels are patent. No evidence of hemo dynamically significant stenosis. Upper thorax: IMPRESSION: 1. No evidence for aneurysm. There is prominence of the basilar artery with basilar tip demonstratin g 4 vessels without focal saccular dilation. 2. No evidence of dissection of the cervical internal carotid arteries or vertebral arteries or any evidence of significant stenosis at the carotid bifurcations. 3. No evidence of intracranial high-grade stenosis or intracranial aneurysm.
[2023-10-29 18:37] LABS: Amphetamine Screen,Urine Not Detected (NotDetected); Barbiturate Screen,Urine Not Detected (NotDetected); Benzodiazepines Screen,Urine Not Detected (NotDetected); Cocaine Screen,Urine Not Detected (NotDetected); Methadone Screen, Urine Not Detected (NotDetected); Opiate Screen,Urine Not Detected (NotDetected); Oxycodone Screen, Urine Not Detected (NotDetected); Phencyclidine Screen,Urine Not Detected (NotDetected); Tricyclic Antidepressant,Urine Not Detected (NotDetected); Urn Cannabinoid Scrn Not Detected (NotDetected)
[2023-10-29 19:02] LABS: T4, Free (Free Thyroxine) 1.02 ng/dL (0.78-2.19)
[2023-10-29] MEDS: SODIUM CHLORIDE 0.9% 1,000 ML IV SCH (21:48)
[2023-10-30] MEDS: SODIUM CHLORIDE 0.9% 1,000 ML IV SCH ×2 (03:27→16:55)
[2023-10-30] MEDS: THIAMINE 100 MG TAB PO SCH (08:19)
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
--- NOTE | 2023-10-30 13:58 | CT ---
EXAMINATION TYPE: CT brain wo con DATE OF EXAM: 10/30/2023 COMPARISON: 10/29/2023 HISTORY: Confusion unknown cause CT DLP: 1212.[address] of the brain was performed. The ventricles, basal cisterns and sulci overlying the cerebral convexities demonstrate mild enlargem ent. There is no evidence for intracranial hemorrhage or sulcal effacement. There is decreased attenuation about the periventricular white matter and deep white matter of both c erebral hemispheres, compatible with chronic small vessel ischemia. Differential diagnosis does inclu de demyelination. No mass effects are seen.No midline shift. Osseous calvarium is intact. If symptoms persist consider MRI. IMPRESSION: 1. Age related atrophic and chronic small vessel ischemic change without acute intracranial process s een at this time.
[2023-10-30] MEDS: FOLIC ACID 1 MG TAB PO SCH (16:01)
--- NOTE | 2023-10-30 18:02 | EEG ---
ELECTROENCEPHALOGRAM REPORT CLINICAL HISTORY: This is a 68-year-old gentleman with altered mental status. The video EEG is obtained to evaluate for seizure and epileptiform activity. RELEVANT MEDICATIONS: The patient is not on any antiepileptic drug. EEG TYPE: A routine 21-channel EEG with video using the 10/20 electrode placement system. DESCRIPTION: Wakefulness and drowsiness are obtained. During awake state, the background consists of xwm-ij-lokbrcka voltage of 9 to 9-1/2 Hz activity. There is no physiological stage II sleep architecture. There is no focal slowing. INTERICTAL AND ICTAL: None. ACTIVATION PROCEDURE: Photic stimulation did not evoke a posterior driving response. There is no abnormality during the photic stimulation. Hyperventilation is not performed. CLINICAL INTERPRETATION: This is a normal routine EEG. There is no focal slowing, epileptiform discharge, or seizure on the EEG. A normal routine EEG does not rule out underlying epilepsy. Clinical correlation is recommended. REYNA / RUDY: [id number] / RITU
[2023-10-30] MEDS ORDERED: LORazepam 2 MG/ML INJ IV PRN ×2 (19:45)
[2023-10-30] MEDS: LORazepam 2 MG/ML INJ IV PRN (23:23)
[2023-10-30] MEDS: LACTULOSE 20 GM/30 ML CUP PO SCH (23:23)
[2023-10-31] MEDS: FOLIC ACID 1 MG TAB PO SCH (10:01)
[2023-10-31] MEDS: THIAMINE 100 MG TAB PO SCH (10:01)
[2023-10-31] MEDS: LACTULOSE 20 GM/30 ML CUP PO SCH ×3 (10:01→17:52)
[2023-10-31] MEDS: LORazepam 2 MG/ML INJ IV PRN ×2 (10:14→16:26)
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
[2023-10-31] MEDS ORDERED: HALOPERIDOL LACTATE 5 MG/ML 1 ML VIAL IVP PRN (16:14)
[2023-10-31] MEDS: SODIUM CHLORIDE 0.9% 1,000 ML IV SCH (17:52)
--- NOTE | 2023-10-31 18:05 | EEG ---
ELECTROENCEPHALOGRAM REPORT CLINICAL HISTORY: This is a 68-year-old gentleman with altered mental status. The video EEG is obtained to evaluate for seizure and epileptiform activity. RELEVANT MEDICATION: Ativan. EEG TYPE: A routine 21-channel EEG with video using the 10/20 electrode placement system. DESCRIPTION: Wakefulness and drowsiness are obtained. During awake state, the posterior- dominant rhythm consists of fvk-hl-revsqnci voltage of 9 to 9.5 Hz activity, that is well modulated and well sustained. There is no physiological stage II sleep architecture. There is no focal slowing. There is excessive beta activity throughout bilateral hemisphere. INTERICTAL AND ICTAL: None. ACTIVATION PROCEDURE: Photic stimulation and hyperventilation are not performed. CLINICAL INTERPRETATION: This is an abnormal routine EEG. The excessive beta activity is due to likely medication effect (Ativan). Otherwise, the background is normal, and there is no focal slowing, epileptiform discharge, or seizure on the EEG. Clinical correlation is recommended. REYNA / RUDY: [id number] / [email or web address]
[2023-11-01] MEDS: LACTULOSE 20 GM/30 ML CUP PO SCH ×5 (06:54→21:52)
[2023-11-01] MEDS: FOLIC ACID 1 MG TAB PO SCH (08:34)
[2023-11-01] MEDS: amLODIPine 5 MG TAB PO SCH (08:34)
[2023-11-01] MEDS: THIAMINE 100 MG TAB PO SCH (08:34)
[2023-11-01 10:53] LABS: Basophils % (A) 1 %; Eosinophils # (A) 0.3 k/uL (0-0.7); Eosinophils % (A) 6 %; HGB 17.3 gm/dL (13.0-17.5); Lymphocytes # (A) 1.9 k/uL (1.0-4.8); Lymphocytes % (A) 39 %; MCH 30.8 pg (25.0-35.0); MCHC 32.7 g/dL (31.0-37.0); MCV 94.1 fL (80.0-100.0); Mean Platelet Volume 9.4; Monocytes # (A) 0.3 k/uL (0-1.0); Monocytes % (A) 7 %; Neutrophils # (A) 2.2 k/uL (1.3-7.7); Neutrophils % (A) 44 %; Platelet Count 190 k/uL (150-450); RBC 5.63 m/uL (4.30-5.90); RDW 12.5 % (11.5-15.5); WBC 4.9 k/uL (3.8-10.6)
[2023-11-01 11:06] LABS: African American GFR (CKD) 79 (>60 ml/min/1.73 sqM); Anion Gap 15 mmol/L; Blood Urea Nitrogen 17 mg/dL (9-20); Calcium 10.6 mg/dL (8.4-10.2); Carbon Dioxide 20 mmol/L (22-30); Chloride 103 mmol/L (98-107); Glucose 103 mg/dL (74-99); Magnesium 1.6 mg/dL (1.6-2.3); Non-African American GFR(CKD) 69 (>60 ml/min/1.73 sqM); Potassium 4.1 mmol/L (3.5-5.1); Sodium 138 mmol/L (137-145)
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
[2023-11-01 13:31] LABS: Ionized Calcium 4.9 mg/dL (4.5-5.3)
[2023-11-01 13:38] LABS: C Reactive Protein <0.5 mg/dL (<1.0)
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
[2023-11-01] MEDS: SODIUM CHLORIDE 0.9% 1,000 ML IV SCH ×3 (17:17→22:57)
[2023-11-01] MEDS: risperiDONE 0.5 MG TAB PO SCH ×2 (18:41→21:52)
[2023-11-01] MEDS ORDERED: MELATONIN 3 MG TABLET PO SCH (21:00)
--- NOTE | 2023-11-02 04:56 | HP ---
HISTORY AND PHYSICAL CHIEF COMPLAINT: Mental status changes. HISTORY OF PRESENT ILLNESS: This gentleman presented to the emergency room with confusion. He has had a history of heavy alcohol consumption. However, in the emergency room, his alcohol level was 0. There is no history of trauma. It is possible that he stopped drinking several days before coming in. Other than confusion, there are no signs of delirium tremens. History could not be obtained from the patient. He was slightly lethargic and confused. Drug screen was also negative otherwise. REVIEW OF SYSTEMS: He cannot respond appropriately. Past medical history, family history and personal and social histories reveal that he is not allergic to any medication. MEDICATIONS: He has been on, 1. Amlodipine. 2. Chlorthalidone. 3. Cyclobenzaprine. 4. Ibuprofen. 5. Vitamin D. Remainder of his history is either unremarkable or not obtainable. He does continue to smoke. PHYSICAL EXAMINATION: VITAL SIGNS: Blood pressure is 140/80 with a pulse of 116, and respirations of 32. GENERAL: He appeared to be well developed, well nourished, but looks lethargic and confused. HEAD, EARS, EYES, NOSE, MOUTH AND THROAT: Reveal pupils equally round and reactive and gaze is conjugate. NECK: Neck veins are not distended. CHEST: Clear. CARDIAC: Normal. ABDOMEN: Soft and nontender. EXTREMITIES: Normal. ASSESSMENT: He is admitted to the hospital with, 1. Mental status changes. 2. History of hypertension. 3. History of alcoholism. PLAN: 1. Bed rest. 2. IV fluids. 3. Frequent monitoring of his neurologic status and vital signs. 4. Watch for DTs. 5. Watch for seizure activity. 6. Neurology consult. MMODL / IJN: [id number] /
[2023-11-02] MEDS: LACTULOSE 20 GM/30 ML CUP PO SCH ×4 (09:44→21:54)
[2023-11-02] MEDS: FOLIC ACID 1 MG TAB PO SCH (09:44)
[2023-11-02] MEDS: amLODIPine 5 MG TAB PO SCH (09:44)
[2023-11-02] MEDS: THIAMINE 100 MG TAB PO SCH (09:44)
[2023-11-02] MEDS: risperiDONE 0.5 MG TAB PO SCH ×2 (09:44→21:54)
[2023-11-02] MEDS: LORazepam 2 MG/ML INJ IV PRN (09:44)
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
--- NOTE | 2023-11-02 14:06 | P.PN ---
Progress Note - Text Progress Note Date: 11/02/23 Interval history: Patient was seen today at the bedside for follow-up of his delirium. Patient appeared to be mildly more cooperative today during interview. He continues to be fairly disinterested, nonchalant. He was very concrete. She tended to answer most questions. States that he slept a bit last night. He continues to be restless at times and getting up from the bed and wandering in his room. He did endorse mild anxiety. He did not report any other complaints to telegraphic typewriter operator chief today. Has been taking his medications. Ammonia level is improving. Claimed to have a fair appetite and recalled what he ate today. He knew he was in [facility], he knew his full name, he believes that he was "March 2023". MENTAL STATUS EXAM: General Appearance: Patient appears to be stated age is alert bald, pleasant, attempts to be cooperative. Patient appears to have fair hygiene and grooming wearing hospital gown with fair eye contact. Behavior: Patient is calmly lying in bed without any agitated behavior. Confused, improving mildly Speech: Patient's speech is fluent and nonpressured. [place] Mood/Affect: Patient reports their mood is "ok", affect is congruent and constricted Suicidality/Homicidality: Patient denies having any suicidal or homicidal ideation intent or plan. Perceptions: Patient denies any visual hallucinations and denies any auditory hallucinations Though content/process: There is no evidence of any delusional thought content. Confabulating less today. Memory and concentration: AOX2, did not know today's date. I'll improving attention span. Judgment and insight: poor, improving mildly IMPRESSIONS: Delirium, unknown etiology Alcohol use disorder, r/o withdrawal hx of opioid abuse PLAN: -At this time patient DOES NOT meet criteria for inpatient psychiatric admission. -Delirium precautions recommended with patient including - avoiding use of narcotics and SUPERVISOR EDGING sedatives, limit anticholinergic medications when possible, frequent re-orientation, minimize use of restraints, open window shades during the day and close them at night -Would recommend the following medication changes/additions: Continue Risperdal 0.5 mg twice a day for delirium/psychosis. Increase melatonin 5 mg qhs for sleep. d/c BZD including ativan due to likelihood that patient would get worst with it. added Buspar 10 mg tid for anxiety. -CIWA protocol with PRN Ativan for alcohol withdrawal. Continue to monitor vital signs. -awaiting old medical records from [facility]. -Communicated plan to patient's nurse -Will continue to follow along if needed over the weekend. -Please contact with any questions.
--- NOTE | 2023-11-02 15:16 | MR ---
MRI brain without contrast HISTORY: Altered mental status. COMPARISON: 02/02/2015. TECHNIQUE: Multiecho multiplanar images the brain were obtained without contrast. FINDINGS: The ventricles, basal cisterns and sulci over convexities within normal limits and there is no mass e ffect or shift of the midline structures. There is marked diffuse abnormal increased signal intensity in the white matter both humeral hemisphe res consistent with marked chronic ischemic white matter demyelination. Based on diffusion-weighted imaging, there is no diffusion restriction or acute ischemic event. The posterior fossa including the brainstem, fourth ventricle and cerebellar pontine angles are gross ly normal. The intraorbital contents appear normal and symmetric. Visualized paranasal sinuses and mastoid air cells are well aerated. IMPRESSION: 1. Mildly limited by involuntary patient motion. 2. No acute ischemic event. 3. Marked chronic ischemic white matter demyelination.
[2023-11-02] MEDS: busPIRone HCl 10 MG TAB PO SCH ×2 (16:40→21:54)
[2023-11-02] MEDS: SODIUM CHLORIDE 0.9% 1,000 ML IV SCH (19:52)
[2023-11-02] MEDS: MELATONIN 5 MG TABLET PO SCH (21:54)
[2023-11-03] MEDS: LORazepam 1 MG TAB PO PRN (01:44)
[2023-11-03] MEDS: SODIUM CHLORIDE 0.9% 1,000 ML IV SCH ×2 (02:27→12:15)
--- NOTE | 2023-11-03 08:49 | PN ---
PROGRESS NOTE DATE OF SERVICE: 10/30/2023 CHIEF COMPLAINT: Confusion. HISTORY OF PRESENT ILLNESS: This gentleman remains confused. He is a little bit more alert, but he is totally confused. He has no complaints of headache, chest pain, focal neurologic signs or symptoms, etc. PHYSICAL EXAMINATION: CHEST: Clear. CARDIAC: Normal. ABDOMEN: Soft, nontender. NEUROLOGIC: He has good strength bilaterally. He is confused. IMPRESSION: 1. Mental status changes. 2. ? alcoholism. PLAN: Await further evaluation by Neurology and Psychiatry. MMODL / IJN: [id number] /
--- NOTE | 2023-11-03 08:59 | PN ---
PROGRESS NOTE DATE OF SERVICE: 10/31/2023 CHIEF COMPLAINT: Confusion. HISTORY OF PRESENT ILLNESS: This gentleman still remains confused. Studies have been negative so far. Vital signs are normal. REVIEW OF SYSTEMS: He remains confused. He does not have any headache, chest pain, abdominal pain, etc. PHYSICAL EXAMINATION: CHEST: Clear. CARDIAC: Normal. ABDOMEN: Soft, nontender. IMPRESSION: Confusion, etiology unknown. PLAN: Continue with neurologic evaluation and he has also been seen by Psychiatry. MMODL / IJN: [id number] /
--- NOTE | 2023-11-03 09:04 | PN ---
PROGRESS NOTE DATE OF SERVICE: 11/01/2023 CHIEF COMPLAINT: Confusion. HISTORY OF PRESENT ILLNESS: This gentleman continues to be confused. He has had no chest pain, headache, neurologic deficits otherwise, etc. PHYSICAL EXAMINATION: CHEST: Clear. CARDIAC: Normal in sinus rhythm. HEENT: Head, ears, eyes, nose, mouth, and throat are normal. CHEST: Clear. CARDIAC: Normal. ABDOMEN: Soft, nontender. IMPRESSION: Confusion, etiology unknown. PLAN: Continue with workup and evaluation including Psychiatry and Neurology. MMODL / IJN: [id number] /
[2023-11-03] MEDS: risperiDONE 0.5 MG TAB PO SCH ×2 (09:09→21:23)
[2023-11-03] MEDS: THIAMINE 100 MG TAB PO SCH (09:09)
[2023-11-03] MEDS: busPIRone HCl 10 MG TAB PO SCH ×3 (09:09→21:23)
[2023-11-03] MEDS: amLODIPine 5 MG TAB PO SCH (09:09)
[2023-11-03] MEDS: FOLIC ACID 1 MG TAB PO SCH (09:09)
[2023-11-03] MEDS: LACTULOSE 20 GM/30 ML CUP PO SCH ×4 (09:36→21:23)
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
--- NOTE | 2023-11-03 19:28 | PN ---
PROGRESS NOTE DATE OF SERVICE: 11/03/2023 CHIEF COMPLAINT: Mental status changes with confusion. HISTORY OF PRESENT ILLNESS: This gentleman remains confused and somewhat lethargic. This is beginning to look like a chronic problem. He has been worked up and evaluated by both Neurology and Psychiatry. REVIEW OF SYSTEMS: He is confused as to where he is. PHYSICAL EXAMINATION: GENERAL: He has no deficits. CHEST: Clear. CARDIAC: Normal. ABDOMEN: Normal. Abdomen is soft, nontender. IMPRESSION: 1. Mental status changes. 2. 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 PLAN: 1. Continue to monitor his neurologic status. 2. Refer to Management Technician for discharge planning. MMODL / IJN: [id number] /
--- NOTE | 2023-11-03 19:37 | PN ---
PROGRESS NOTE DATE OF SERVICE: 11/02/2023 CHIEF COMPLAINT: Mental status changes. HISTORY OF PRESENT ILLNESS: This gentleman is still the same. He is still confused and lethargic. No studies have been positive up to this point. He is seeing both Neurology and Psychiatry. He remains confused. He is somewhat lethargic and he does not have any lateralizing signs or symptoms. PHYSICAL EXAMINATION: CHEST: Clear. CARDIAC: Normal. ABDOMEN: Soft, nontender. IMPRESSION: 1. Mental status changes. 2. History of alcoholism. 3. Possible encephalopathy. PLAN: Continue his workup and follow his cognitive abilities. MMODL / IJN: [id number] /
[2023-11-03] MEDS: MELATONIN 5 MG TABLET PO SCH (21:23)
[2023-11-04] MEDS: SODIUM CHLORIDE 0.9% 1,000 ML IV SCH ×2 (05:13→16:17)
[2023-11-04] MEDS: THIAMINE 100 MG TAB PO SCH (09:13)
[2023-11-04] MEDS: FOLIC ACID 1 MG TAB PO SCH (09:14)
[2023-11-04] MEDS: risperiDONE 0.5 MG TAB PO SCH ×2 (09:14→21:31)
[2023-11-04] MEDS: amLODIPine 5 MG TAB PO SCH (09:14)
[2023-11-04] MEDS: busPIRone HCl 10 MG TAB PO SCH ×3 (09:14→21:31)
[2023-11-04] MEDS: LACTULOSE 20 GM/30 ML CUP PO SCH ×4 (09:54→21:31)
[2023-11-04] MEDS: MELATONIN 5 MG TABLET PO SCH (21:30)
--- NOTE | 2023-11-04 22:16 | PN ---
PROGRESS NOTE DATE OF SERVICE: 11/04/2023 CHIEF COMPLAINT: Mental status changes. HISTORY OF PRESENT ILLNESS: This gentleman seems a little bit more alert today, but he is still confused as to place. He has no complaints of headaches, chest pain, focal neurologic problems, change in vision or hearing, etc. PHYSICAL EXAMINATION: CHEST: Clear. CARDIAC: Normal. ABDOMEN: Soft, nontender. IMPRESSION: 1. Mental status changes. 2. 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 PLAN: Look for discharge plan this week. MMODL / JAYYN: [id number] /
[2023-11-05] MEDS: SODIUM CHLORIDE 0.9% 1,000 ML IV SCH ×2 (05:44→20:38)
[2023-11-05] MEDS: risperiDONE 0.5 MG TAB PO SCH (08:01)
[2023-11-05] MEDS: busPIRone HCl 10 MG TAB PO SCH ×3 (08:01→20:34)
[2023-11-05] MEDS: THIAMINE 100 MG TAB PO SCH (08:01)
[2023-11-05] MEDS: LACTULOSE 20 GM/30 ML CUP PO SCH ×4 (08:01→20:34)
[2023-11-05] MEDS: FOLIC ACID 1 MG TAB PO SCH (08:01)
[2023-11-05] MEDS: amLODIPine 5 MG TAB PO SCH (08:01)
[2023-11-05 12:19] VITALS: BMI 24.3
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
--- NOTE | 2023-11-05 14:54 | P.PN ---
Progress Note - Text Progress Note Date: 11/05/23 Interval history: Patient was seen today at the bedside for follow-up of his delirium. Patient appeared to be mildly more cooperative today during interview. Patient was coming out of the bathroom, following some directions. He was picking at his tape on his arm from his IV line. He appeared to be somewhat restless and fidgeting. He continues to be fairly disinterested, nonchalant. Somewhat focused on discharge today. He was very concrete. She tended to answer most questions. States that he slept a bit last night. He did not report any other complaints to commercial insurance underwriter today. Has been taking his medications. Claimed to have a fair appetite and recalled what he ate today. he believes that he was "Dec 2022" and believed that he was in an "[place] restaurant" MENTAL STATUS EXAM: General Appearance: Patient appears to be stated age is alert bald, pleasant, attempts to be cooperative. Patient appears to have fair hygiene and grooming wearing hospital gown with fair eye contact. Behavior: Patient is calmly lying in bed without any agitated behavior. Conf used, improving mildly. restless Speech: Patient's speech is fluent and nonpressured. [place] Mood/Affect: Patient reports their mood is "fine", affect is congruent and constricted Suicidality/Homicidality: Patient denies having any suicidal or homicidal ideation intent or plan. Perceptions: Patient denies any visual hallucinations and denies any auditory hallucinations Though content/process: There is no evidence of any delusional thought content. Confabulating less today. Memory and concentration: AOX1, did not know today's date was or the location. mildly improving attention span. Judgment and insight: poor, improving mildly IMPRESSIONS: Delirium, unknown etiology r/o neurocognitive disorder Alcohol use disorder, r/o withdrawal hx of opioid abuse PLAN: -At this time patient DOES NOT meet criteria for inpatient psychiatric admission. -Delirium precautions recommended with patient including - avoiding use of narcotics and LIBRARIAN [employer]PER sedatives, limit anticholinergic medications when possible, frequent re-orientation, minimize use of restraints, open window shades during the day and close them at night -Would recommend the following medication changes/additions: Continue Risperdal 0.5 mg twice a day for delirium/psychosis. Increase melatonin 10 mg qhs for sleep. Buspar 10 mg tid for anxiety. -CIWA protocol with PRN Ativan for alcohol withdrawal. Continue to monitor vital signs. -awaiting old medical records from [facility]. -Communicated plan to patient's nurse -Will continue to follow along if needed -Please contact with any questions.
[2023-11-05] MEDS: risperiDONE 1 MG TAB PO SCH ×2 (16:03→20:34)
[2023-11-05] MEDS: MELATONIN 5 MG TABLET PO SCH (20:34)
[2023-11-05] MEDS: LORazepam 1 MG TAB PO PRN (22:18)
[2023-11-06] MEDS: LORazepam 1 MG TAB PO PRN (05:19)
[2023-11-06] MEDS: FOLIC ACID 1 MG TAB PO SCH (09:49)
[2023-11-06] MEDS: risperiDONE 1 MG TAB PO SCH ×2 (09:49→21:16)
[2023-11-06] MEDS: amLODIPine 5 MG TAB PO SCH (09:49)
[2023-11-06] MEDS: LACTULOSE 20 GM/30 ML CUP PO SCH ×4 (09:49→21:16)
[2023-11-06] MEDS: busPIRone HCl 10 MG TAB PO SCH ×3 (09:49→21:16)
[2023-11-06] MEDS: THIAMINE 100 MG TAB PO SCH (09:49)
[2023-11-06] MEDS: SODIUM CHLORIDE 0.9% 1,000 ML IV SCH ×2 (09:50→21:17)
[2023-11-06] MEDS: MELATONIN 5 MG TABLET PO SCH (21:16)
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
[2023-11-07] MEDS: LACTULOSE 20 GM/30 ML CUP PO SCH ×4 (11:03→20:56)
[2023-11-07] MEDS: FOLIC ACID 1 MG TAB PO SCH (11:04)
[2023-11-07] MEDS: THIAMINE 100 MG TAB PO SCH (11:04)
[2023-11-07] MEDS: busPIRone HCl 10 MG TAB PO SCH ×3 (11:04→21:06)
[2023-11-07] MEDS: risperiDONE 1 MG TAB PO SCH ×2 (11:04→21:06)
[2023-11-07] MEDS: amLODIPine 5 MG TAB PO SCH (11:04)
[2023-11-07] MEDS: SODIUM CHLORIDE 0.9% 1,000 ML IV SCH ×2 (11:06→23:40)
[2023-11-07] MEDS: MELATONIN 5 MG TABLET PO SCH (21:06)
--- NOTE | 2023-11-07 22:46 | PN ---
PROGRESS NOTE DATE OF SERVICE: 11/06/2023 CHIEF COMPLAINT: Alcoholic encephalopathy. HISTORY OF PRESENT ILLNESS: There has been no interval change. This gentleman remains confused. PHYSICAL EXAMINATION: VITAL SIGNS: Normal. CHEST: Clear. CARDIAC: Normal. ABDOMEN: Soft. IMPRESSION: Alcoholic encephalopathy. PLAN: longterm placement. MMODL / IJN: [id number] /
--- NOTE | 2023-11-07 22:46 | PN ---
PROGRESS NOTE DATE OF SERVICE: 11/05/2023 CHIEF COMPLAINT: Mental status changes. HISTORY OF PRESENT ILLNESS: This gentleman remains about the same. He is still arousable, and fairly alert, but remains confused. He gets agitated at night and he has a sitter. PHYSICAL EXAMINATION: VITAL SIGNS: Normal. CHEST: Clear. CARDIAC: Normal. NEUROLOGICAL: He is intact other than confusion. ASSESSMENT: Encephalopathy probably related to alcohol. PLAN: Look for discharge location. He will probably have to [facility] to a [facility]. MMODL / IJN: [id number] /
--- NOTE | 2023-11-07 22:55 | PN ---
PROGRESS NOTE DATE OF SERVICE: 11/07/2023 CHIEF COMPLAINT: Encephalopathy. HISTORY OF PRESENT ILLNESS: This patient is doing well except for he remains confused. PHYSICAL EXAMINATION: NEUROLOGIC: He is intact other than his confusion. VITAL SIGNS: Normal. CHEST: Clear. IMPRESSION: Alcoholic encephalopathy. PLAN: [facility] placement. MMJACKIEL / JAYYN: [id number] /
[2023-11-08] MEDS: LORazepam 1 MG TAB PO PRN (03:00)
[2023-11-08 05:42] LABS: HIV 2 AB Non-Reactive (Non-Reactive); HIV AB P24 Non-Reactive (Non-Reactive); HIV P24 AG Non-Reactive (Non-Reactive)
[2023-11-08] MEDS: busPIRone HCl 10 MG TAB PO SCH ×3 (09:08→20:05)
[2023-11-08] MEDS: risperiDONE 1 MG TAB PO SCH (09:08)
[2023-11-08] MEDS: THIAMINE 100 MG TAB PO SCH (09:08)
[2023-11-08] MEDS: FOLIC ACID 1 MG TAB PO SCH (09:08)
[2023-11-08] MEDS: amLODIPine 5 MG TAB PO SCH (09:09)
[2023-11-08] MEDS: LACTULOSE 20 GM/30 ML CUP PO SCH ×4 (09:10→20:06)
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
[2023-11-08] MEDS ORDERED: traZODone HCL 50 MG TAB PO PRN (15:49)
[2023-11-08] MEDS: SODIUM CHLORIDE 0.9% 1,000 ML IV SCH (15:53)
--- NOTE | 2023-11-08 15:53 | P.PN ---
Progress Note - Text Progress Note Date: 11/08/23 Interval history: Patient was seen today at the bedside for follow-up of his delirium. Patient appeared to be quite tired during today's interview, nurse states he did not sleep well last night and fell asleep at 6 AM this morning.. He continues to be fairly disinterested, nonchalant. He was very concrete. He tended to answer most questions. Patient states that his anxiety and mood is "pretty rough". The nurse stated that his sister has filed guardianship for patient and has court next Sunday for this and plans are patient going to a rehab when leaving hospital. He did endorse mild anxiety. He did not report any other complaints to television script writer today. Has been taking his medications. Claimed to have a fair appetite and recalled what he ate today. He thought he was in a restaraunt, he knew his full name, he believes that he was "March 2023". At this time he is denying any suicidal or homicidal ideations intent or plan. Denying any auditory or visual hallucinations. MENTAL STATUS EXAM: General Appearance: Patient appears to be stated age is alert bald, pleasant, nonchalant. Patient appears to have fair hygiene and grooming wearing hospital gown with poor eye contact. Behavior: Patient is calmly lying in bed without any agitated behavior. Confus ed, improving mildly Speech: Patient's speech is fluent and nonpressured. [place] Mood/Affect: Patient reports their mood is "rough", affect is congruent and constricted Suicidality/Homicidality: Patient denies having any suicidal or homicidal ideation intent or plan. Perceptions: Patient denies any visual hallucinations and denies any auditory hallucinations Though content/process: There is no evidence of any delusional thought content. Confabulating, concrete. poverty of content. Memory and concentration: AOX1, to name only Judgment and insight: poor IMPRESSIONS: Neurocognitive disorder, Vascular versus alcohol etiology delirium, unknown etiology, resolving Alcohol use disorder hx of opioid abuse PLAN: -At this time patient DOES NOT meet criteria for inpatient psychiatric a dmission. -Would recommend the following medication changes/additions: change Risperdal 2 mg qhs for delirium/psychosis. continue melatonin 10 mg qhs for sleep. increase Buspar 20 mg tid for anxiety. start trazodone 50 mg daily at bedtime when necessary for sleep -d/c MARJORIE protocol and Ativan for alcohol withdrawal. Continue to monitor vital signs. -Communicated plan to patient's nurse -at this time psychiatry will sign off -Please contact with any questions.
[2023-11-08] MEDS: MELATONIN 5 MG TABLET PO SCH (20:05)
[2023-11-08] MEDS: risperiDONE 2 MG TAB PO SCH (20:09)
--- NOTE | 2023-11-08 23:52 | PN ---
PROGRESS NOTE DATE OF SERVICE: 11/08/2023 CHIEF COMPLAINT: Confusion and encephalopathy. HISTORY OF PRESENT ILLNESS: This gentleman is unchanged. He is a little bit more alert, but remains confused. Does not know where he lives and he does not know where he is. We are waiting for group home placement. PHYSICAL EXAMINATION: Normal other than his mentation. IMPRESSION: Alcoholic encephalopathy. PLAN: [facility] placement. MMJACKIEL / JAYYN: [id number] /
[2023-11-09] MEDS: SODIUM CHLORIDE 0.9% 1,000 ML IV SCH ×2 (04:35→21:32)
[2023-11-09] MEDS: LACTULOSE 20 GM/30 ML CUP PO SCH ×4 (09:21→21:32)
[2023-11-09] MEDS: amLODIPine 5 MG TAB PO SCH (09:21)
[2023-11-09] MEDS: THIAMINE 100 MG TAB PO SCH (09:21)
[2023-11-09] MEDS: busPIRone HCl 10 MG TAB PO SCH ×3 (09:21→21:31)
[2023-11-09] MEDS: FOLIC ACID 1 MG TAB PO SCH (09:21)
[2023-11-09] MEDS: risperiDONE 2 MG TAB PO SCH (21:31)
[2023-11-09] MEDS: MELATONIN 5 MG TABLET PO SCH (21:31)
--- NOTE | 2023-11-10 05:14 | PN ---
PROGRESS NOTE DATE OF SERVICE: 11/08/2023 CHIEF COMPLAINT: Alcoholic encephalopathy. HISTORY OF PRESENT ILLNESS: This gentleman remains confused. He gets agitated at night. He still has a sitter. We are still waiting for placement. PHYSICAL EXAMINATION: VITAL SIGNS: Normal. CHEST: Clear. CARDIAC: Normal. ABDOMEN: Soft, nontender. NEUROLOGIC: He is confused as to the time and place. IMPRESSION: Alcoholic encephalopathy. PLAN: Await for discharge plan. MMODL / IJN: [id number] /
--- NOTE | 2023-11-10 05:19 | PN ---
PROGRESS NOTE DATE OF SERVICE: 11/09/2023 CHIEF COMPLAINT: Alcoholic encephalopathy. HISTORY OF PRESENT ILLNESS: This gentleman is just about the same. There has been no interval change. He remains confused. He will have to go to a long-term care facility and we are waiting a bit. PHYSICAL EXAMINATION: VITAL SIGNS: Normal. NEUROLOGIC: His exam is otherwise normal other than his confusion. IMPRESSION: Mental status issues secondary to alcoholic encephalopathy. PLAN: Await a discharge plan. MMODL / IJN: [id number] /
[2023-11-10] MEDS: SODIUM CHLORIDE 0.9% 1,000 ML IV SCH (06:28)
[2023-11-10] MEDS: busPIRone HCl 10 MG TAB PO SCH ×3 (09:00→21:24)
[2023-11-10] MEDS: LACTULOSE 20 GM/30 ML CUP PO SCH ×3 (09:00→21:24)
[2023-11-10] MEDS: THIAMINE 100 MG TAB PO SCH (09:00)
[2023-11-10] MEDS: FOLIC ACID 1 MG TAB PO SCH (09:00)
[2023-11-10] MEDS: amLODIPine 5 MG TAB PO SCH (09:01)
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
[2023-11-10] MEDS: MELATONIN 5 MG TABLET PO SCH (21:24)
[2023-11-10] MEDS: risperiDONE 2 MG TAB PO SCH (21:25)
[2023-11-10] MEDS: NICOTINE 14MG/24HR PATCH TRANSDERM SCH (21:25)
[2023-11-11] MEDS: SODIUM CHLORIDE 0.9% 1,000 ML IV SCH ×2 (00:17→08:31)
[2023-11-11] MEDS: LACTULOSE 20 GM/30 ML CUP PO SCH ×5 (00:17→20:36)
[2023-11-11] MEDS: FOLIC ACID 1 MG TAB PO SCH (08:30)
[2023-11-11] MEDS: busPIRone HCl 10 MG TAB PO SCH ×3 (08:30→20:35)
[2023-11-11] MEDS: THIAMINE 100 MG TAB PO SCH (08:30)
[2023-11-11] MEDS: NICOTINE 14MG/24HR PATCH TRANSDERM SCH (08:30)
[2023-11-11] MEDS: amLODIPine 5 MG TAB PO SCH (08:30)
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
[2023-11-11] MEDS: MELATONIN 5 MG TABLET PO SCH (20:35)
[2023-11-11] MEDS: risperiDONE 2 MG TAB PO SCH (20:36)
[2023-11-12] MEDS: busPIRone HCl 10 MG TAB PO SCH ×3 (09:24→21:42)
[2023-11-12] MEDS: amLODIPine 5 MG TAB PO SCH (09:24)
[2023-11-12] MEDS: NICOTINE 14MG/24HR PATCH TRANSDERM SCH (09:24)
[2023-11-12] MEDS: LACTULOSE 20 GM/30 ML CUP PO SCH ×4 (09:24→21:45)
[2023-11-12] MEDS: THIAMINE 100 MG TAB PO SCH (09:24)
[2023-11-12] MEDS: FOLIC ACID 1 MG TAB PO SCH (09:24)
[2023-11-12] MEDS: SODIUM CHLORIDE 0.9% 1,000 ML IV SCH ×2 (09:25→17:57)
[2023-11-12] MEDS: risperiDONE 2 MG TAB PO SCH (21:40)
[2023-11-12] MEDS: MELATONIN 5 MG TABLET PO SCH (21:41)
--- NOTE | 2023-11-13 01:41 | PN ---
PROGRESS NOTE CHIEF COMPLAINT: Alcoholic encephalopathy. HISTORY OF PRESENT ILLNESS: This gentleman's condition is unchanged. We are waiting for placement. PHYSICAL EXAMINATION: Normal. He is still confused. IMPRESSION: 1. Alcoholic encephalopathy. 2. Alcoholism. 3. Delirium. PLAN: No change in his management until discharge plan can be established. MMJOANN / IJN: [id number] /
--- NOTE | 2023-11-13 05:28 | PN ---
PROGRESS NOTE DATE OF SERVICE: 11/11/2023 CHIEF COMPLAINT: Encephalopathy. HISTORY OF PRESENT ILLNESS: There has been no interval change. He remains confused. PHYSICAL EXAMINATION: GENERAL: He is otherwise normal. VITAL SIGNS: Normal. IMPRESSION: Alcoholic encephalopathy. PLAN: Wait for discharge plan. MMJOANN / RUDY: [id number] /
--- NOTE | 2023-11-13 05:44 | PN ---
PROGRESS NOTE DATE OF SERVICE: 11/10/2023 CHIEF COMPLAINT: Encephalopathy. HISTORY OF PRESENT ILLNESS: There has been no interval change. The patient is still requiring a sitter. We are waiting on discharge plan. PHYSICAL EXAMINATION: VITAL SIGNS: Normal. GENERAL: He is awake and alert, but remains confused. CARDIAC: Normal. ABDOMEN: Soft, nontender. IMPRESSION: Alcoholic encephalopathy. PLAN: Await discharge plan. MMODL / IJN: [id number] /
[2023-11-13] MEDS: busPIRone HCl 10 MG TAB PO SCH ×3 (08:54→21:35)
[2023-11-13] MEDS: FOLIC ACID 1 MG TAB PO SCH (08:54)
[2023-11-13] MEDS: LACTULOSE 20 GM/30 ML CUP PO SCH ×4 (08:54→21:35)
[2023-11-13] MEDS: THIAMINE 100 MG TAB PO SCH (08:54)
[2023-11-13] MEDS: NICOTINE 14MG/24HR PATCH TRANSDERM SCH (08:54)
[2023-11-13] MEDS: amLODIPine 5 MG TAB PO SCH (08:54)
[2023-11-13] MEDS: SODIUM CHLORIDE 0.9% 1,000 ML IV SCH ×2 (08:55→16:52)
--- NOTE | 2023-11-13 15:46 | DS ---
DISCHARGE SUMMARY CHIEF COMPLAINT: Agitation and mental status changes. HISTORY OF PRESENT ILLNESS AND PHYSICAL EXAMINATION: Details of this man's history and physical can be found in the initial workup. LABORATORY STUDIES: While he is in the hospital, he had laboratory studies, details of which can be found in the laboratory section of his chart. COURSE IN THE HOSPITAL: After admission, he was placed on bedrest and started intravenous fluids and frequent monitoring of his neurologic status and vital signs. He was extremely agitated initially for a while and this was thought probably to be tied him with delirium tremens. He received sedation as necessary and was placed on a CIWA protocol. He continued to slowly improve, but remained very confused and agitated and eventually was assigned a sitter. The balance of his hospitalization was spent looking for discharge place for him to go. Bed was found on the and he will be transferred. FINAL DIAGNOSES: 1. Alcoholic encephalopathy. 2. Delirium tremens. 3. Chronic alcoholism. 4. History of hypertension. 5. Chronic obstructive pulmonary disease. 6. Delirium. OPERATIONS: None. CONSULTATIONS: Psychiatry. He is improved. MMJACKIEL / JAYYN: [id number] /
[2023-11-13] MEDS: MELATONIN 5 MG TABLET PO SCH (21:35)
[2023-11-13] MEDS: risperiDONE 2 MG TAB PO SCH (21:35)
--- NOTE | 2023-11-14 00:56 | PN ---
PROGRESS NOTE DATE OF SERVICE: 11/13/2023 CHIEF COMPLAINT: Alcoholic encephalopathy. HISTORY OF PRESENT ILLNESS: This gentleman is stable and was to be going to a [facility] in [place], but is postponed until tomorrow. PHYSICAL EXAMINATION: CHEST: Clear. CARDIAC: Normal. NEUROLOGIC: He remains confused, but alert. IMPRESSION: Alcoholic encephalopathy. PLAN: Transfer to [place] tomorrow. MMODL / IJN: [id number] /
[2023-11-14] MEDS: SODIUM CHLORIDE 0.9% 1,000 ML IV SCH (04:45)
[2023-11-14 07:57] VITALS: BP 117/81; PULSE 88; RESP 16; TEMP 96.4
[2023-11-14] MEDS: amLODIPine 5 MG TAB PO SCH (09:28)
[2023-11-14] MEDS: busPIRone HCl 10 MG TAB PO SCH (09:29)
[2023-11-14] MEDS: THIAMINE 100 MG TAB PO SCH (09:29)
[2023-11-14] MEDS: FOLIC ACID 1 MG TAB PO SCH (09:29)
[2023-11-14] MEDS: LACTULOSE 20 GM/30 ML CUP PO SCH (09:30)
[2023-11-14] MEDS: NICOTINE 14MG/24HR PATCH TRANSDERM SCH (09:30)
== END 2023-11-14 11:09 | DRG 56 ==
LOC: EC 11:09 → 3SCARD 14:28 → 4SSUR 11-09 19:38
PROVIDERS: ADMIT Family Medicine; ATTEND Family Medicine
PROC: HZ2ZZZZ Detoxification Services for Substance Abuse Treatment (ICD-10-PCS; principal; 2023-11-01)
DX: G31.2 Degeneration of nervous system due to alcohol (principal); G92.8 Other toxic encephalopathy; F10.231 Alcohol dependence with withdrawal delirium; E72.20 Disorder of urea cycle metabolism, unspecified; K76.82 Hepatic encephalopathy; F11.10 Opioid abuse, uncomplicated; E11.9 Type 2 diabetes mellitus without complications; I10 Essential (primary) hypertension; J44.9 Chronic obstructive pulmonary disease, unspecified; F17.210 Nicotine dependence, cigarettes, uncomplicated; K21.9 Gastro-esophageal reflux disease without esophagitis; I45.10 Unspecified right bundle-branch block; F41.9 Anxiety disorder, unspecified; T50.906A Underdosing of unspecified drugs, medicaments and biological substances, initial encounter; Y90.0 Blood alcohol level of less than 20 mg/100 ml; Z91.148 Patient's other noncompliance with medication regimen for other reason; Z79.899 Other long term (current) drug therapy
CPT/HCPCS: 36410; 36415; 70450; 70496; 70498; 70551; 72040; 72070; 72100; 76937; 80048; 80053; 80306; 80320; 81001; 82140; 82330; 82607; 82746; 83735; 84425; 84439; 84443; 85025; 85610; 85652; 85730; 86140; 86780; 87390; 93005; 95816; 96360; 96361; 99285

== ENCOUNTER → 2024-03-03 | Outpatient (CLI) | payer MEDICARE, OTHER ==
[2024-03-03 19:59] LABS: Basophils # (A) 0.03 X 10*3/uL (0.00-0.10); Basophils % (A) 0.5 %; Eosinophils # (A) 0.22 X 10*3/uL (0.04-0.35); HCT 42.1 % (39.6-50.0); HGB 13.4 g/dL (13.0-17.0); Lymphocytes # (A) 2.23 X 10*3/uL (0.90-5.00); Lymphocytes % (A) 40.5 %; MCH 31.2 pg (27.0-32.0); MCHC 31.8 g/dL (32.0-37.0); MCV 98.1 FL (80.0-97.0); Mean Platelet Volume 12.3 FL (9.5-12.2); Monocytes % (A) 9.1 %; NRBC Per 100 WBC 0 X 10*3/uL (0.00-0.01); Neutrophils % (A) 45.4 %; Platelet Count 176 X 10*3/uL (140-440); RBC 4.29 X 10*6/uL (4.40-5.60); RDW 13.5 % (11.5-14.5); WBC 5.51 X 10*3/uL (4.50-10.00)
[2024-03-03 21:26] LABS: Hepatitis B Surface Antigen Nonreactive (Nonreactive)
[2024-03-03 21:47] LABS: ALT 40 U/L (10-49); AST 56 U/L (14-35); Albumin 4.4 g/dL (3.8-4.9); Albumin/Globulin Ratio 1.76 Ratio (1.60-3.17); Alkaline Phosphatase 111 U/L (41-126); Calcium 9.9 mg/dL (8.7-10.3); Carbon Dioxide 23.4 mmol/L (21.6-31.8); Chloride 106 mmol/L (96-109); Globulin 2.5 g/dL (1.6-3.3); Glucose 104 mg/dL (70-110); Potassium 4.2 mmol/L (3.5-5.5); Sodium 142 mmol/L (135-145); Total Bilirubin 0.2 mg/dL (0.3-1.2); Total Protein 6.9 g/dL (6.2-8.2)
== END | disposition home or self-care (01) ==
LOC: LABWHC1 14:20
PROVIDERS: ATTEND Internal Medicine Gastroenterology
DX: B18.2 Chronic viral hepatitis C (principal)
CPT/HCPCS: 36415; 80053; 82105; 85025; 87340; 87522

== ENCOUNTER → 2024-03-06 | Outpatient (CLI) | payer MEDICARE, OTHER ==
--- NOTE | 2024-03-06 12:22 | US ---
EXAMINATION TYPE: US liver DATE OF EXAM: 03/06/2024 COMPARISON: NONE CLINICAL INDICATION: Male, 69 years old with history of B18.2 CHRONIC VIRAL HEPATITIS C; hep C TECHNIQUE: Multiple sonographic images of the right upper quadrant are obtained. FINDINGS: EXAM MEASUREMENTS: Liver Length: 15.5 cm Gallbladder Wall: 0.1 cm CBD: 0.5 cm Right Kidney: 12.6x4.2x6.3 cm [employer] NOTES: Pancreas: Tail obscured by overlying bowel gas Liver: wnl Gallbladder: 1.3cm gallstone Evidence for sonographic Harris's sign: No CBD: wnl Right Kidney: No hydronephrosis or masses seen exam limited by bowel gas and rib shadows IMPRESSION: Uncomplicated cholelithiasis.
== END | disposition home or self-care (01) ==
LOC: RADUSWWP 07:48
PROVIDERS: ATTEND Internal Medicine Gastroenterology
DX: B18.2 Chronic viral hepatitis C (principal)
CPT/HCPCS: 76705

== ENCOUNTER → 2024-06-24 | Outpatient (CLI) | payer MEDICARE, OTHER ==
[2024-06-24 12:50] LABS: INR 0.9 (<1.2); Partial Thromboplastin Time 25.1 sec (22.0-30.0); Prothrombin Time 10.3 sec (10.0-12.5)
[2024-06-24 16:02] LABS: HCT 45.1 % (39.6-50.0); HGB 14.7 g/dL (13.0-17.0); MCH 30.6 pg (27.0-32.0); MCHC 32.6 g/dL (32.0-37.0); Mean Platelet Volume 12.1 FL (9.5-12.2); NRBC Per 100 WBC 0 X 10*3/uL (0.00-0.01); Platelet Count 170 X 10*3/uL (140-440); RDW 12.5 % (11.5-14.5); WBC 4.54 X 10*3/uL (4.50-10.00)
[2024-06-24 16:16] LABS: ALT 16 U/L (10-49); AST 37 U/L (14-35); Albumin 4.4 g/dL (3.8-4.9); Albumin/Globulin Ratio 1.91 Ratio (1.60-3.17); Alkaline Phosphatase 91 U/L (41-126); BUN/Creat Ratio 9.18 Ratio (12.00-20.00); Blood Urea Nitrogen 10.1 mg/dL (9.0-27.0); Calcium 9.2 mg/dL (8.7-10.3); Carbon Dioxide 24.9 mmol/L (21.6-31.8); Chloride 104 mmol/L (96-109); Globulin 2.3 g/dL (1.6-3.3); Glucose 76 mg/dL (70-110); Potassium 4.1 mmol/L (3.5-5.5); Sodium 140 mmol/L (135-145); Total Bilirubin 0.4 mg/dL (0.3-1.2); Total Protein 6.7 g/dL (6.2-8.2)
== END | disposition home or self-care (01) ==
LOC: LABPAT 11:28
PROVIDERS: ATTEND Orthopaedic Surgery
DX: Z01.818 Encounter for other preprocedural examination (principal); M16.12 Unilateral primary osteoarthritis, left hip; E11.9 Type 2 diabetes mellitus without complications; I45.10 Unspecified right bundle-branch block; R94.31 Abnormal electrocardiogram [ECG] [EKG]; Z22.322 Carrier or suspected carrier of Methicillin resistant Staphylococcus aureus
CPT/HCPCS: 80053; 83036; 85027; 85610; 85730; 86850; 86900; 86901; 87070; 93005

== ENCOUNTER 2024-07-04 08:00 | Day surgery (SDC) | payer MEDICARE, OTHER ==
[2024-07-04] MEDS ORDERED: ONDANSETRON 4 MG/2 ML VIAL ONE (08:30)
[2024-07-04] MEDS ORDERED: ACETAMINOPHEN TAB 500 MG TAB ONE (08:30)
[2024-07-04] MEDS ORDERED: DEXAMETHASONE SOD PHOSPHATE 4 MG/ML 1 ML VIAL ONE (08:30)
[2024-07-04] MEDS ORDERED: KETOROLAC 15 MG/ML 1 ML VIAL ONE (08:31)
[2024-07-04] MEDS ORDERED: FAMOTIDINE 20 MG/2 ML VIAL ONE (08:31)
[2024-07-04] MEDS ORDERED: DEXAMETHASONE SOD PHOSPHATE 10 MG/ML 1 ML VIAL ONE (08:31)
[2024-07-04] MEDS ORDERED: oxyCODONE ER 10 MG TAB.ER.12H PO ONE (08:31)
[2024-07-04] MEDS ORDERED: ROPIVACAINE 5 MG/ML 30 ML VIAL ONE ×2 (08:32→10:25)
[2024-07-04] MEDS ORDERED: MIDAZOLAM 2 MG/2 ML VIAL ONE ×3 (08:32→10:25)
[2024-07-04] MEDS ORDERED: DOCUSATE 100 MG CAP ONE (08:33)
[2024-07-04] MEDS ORDERED: POVIDONE-IODINE 59 ML BOTTLE ONE (09:17)
[2024-07-04] MEDS ORDERED: ceFAZolin 1,000 MG VIAL ONE (09:17)
[2024-07-04] MEDS ORDERED: SODIUM CHLORIDE 0.9% 50 ML BAG IV ONE (09:17)
[2024-07-04] MEDS ORDERED: LACTATED RINGERS 1,000 ML BAG ONE (09:17)
[2024-07-04] MEDS ORDERED: SODIUM CHLORIDE 0.9% 1,000 ML BAG ONE (09:17)
[2024-07-04] MEDS ORDERED: ROPIVACAINE/EPI/CLONIDINE/KET 50 ML SYRINGE MISCELLANE ONE (09:17)
[2024-07-04] MEDS ORDERED: fentaNYL (PF) 50 MCG/ML 2 ML AMP ONE ×2 (09:39→10:25)
[2024-07-04] MEDS ORDERED: LIDOCAINE 1% INJ 10MG/ML (20 ML MDV) ONE (10:25)
[2024-07-04] MEDS ORDERED: SUCCINYLCHOLINE CHLORIDE 200 MG/10 ML VIAL IV ONE (10:25)
[2024-07-04] MEDS ORDERED: HEPARIN SODIUM,PORCINE 100 UNIT/ML 5 ML VIAL IV ONE (10:25)
[2024-07-04] MEDS ORDERED: TRANEXAMIC 1,000 MG/100ML-NACL PREMIX BAG ONE (10:25)
[2024-07-04] MEDS ORDERED: NEOSTIGMINE 1 MG/ML 10 ML VIAL ONE (10:25)
[2024-07-04] MEDS ORDERED: GLYCOPYRROLATE 0.2 MG/ML 2 ML VIAL ONE (10:25)
[2024-07-04] MEDS ORDERED: PROPOFOL 10 MG/ML 20 ML VIAL IV ONE (10:25)
[2024-07-04] MEDS ORDERED: ROCURONIUM 10 MG/ML (5 ML VIAL) IV ONE (10:25)
[2024-07-04] MEDS ORDERED: HYDROmorphone 0.5 MG/0.5 ML SYRINGE ONE (13:05)
[2024-07-04] MEDS ORDERED: HYDROcodone/APAP 10-325MG 1 EACH TAB ONE ×4 (16:23→22:16)
[2024-07-04] MEDS ORDERED: NICOTINE 14MG/24HR PATCH TRANSDERM ONE (21:14)
[2024-07-04] MEDS ORDERED: ATORVASTATIN 10 MG TAB ONE (21:15)
[2024-07-04] MEDS ORDERED: TAMSULOSIN 0.4 MG CAP.ER.24H PO ONE (21:15)
[2024-07-05] MEDS ORDERED: HYDROcodone/APAP 10-325MG 1 EACH TAB ONE ×2 (04:31)
[2024-07-05] MEDS ORDERED: NICOTINE 14MG/24HR PATCH TRANSDERM ONE (09:17)
[2024-07-05] MEDS ORDERED: CALCIUM CARBONATE 500 MG CHEWABLE PO ONE (10:12)
[2024-07-05] MEDS ORDERED: HYDROcodone/APAP 5-325MG 1 EACH TAB ONE ×2 (10:55)
--- NOTE | 2024-08-26 18:21 | FL ---
EXAMINATION TYPE: FL guidance operating room, XR Hip Limited LT COMPARISON: Pre Operative Images if available both CT/MRI or plain film CLINICAL INDICATION: Male, 69 years old with history of TOTAL ANT HIP LEFT; TECHNIQUE: FL guidance operating room, XR Hip Limited LT, multiple fluoroscopic images provided for p norbertobrian. Total fluoroscopy time: 30 seconds minutes Total submitted images to PACS: 7 DAP: [id number] mGym2 Gycm2 uGym2 cGycm2 FINDINGS: Fluoroscopic images during internal fixation/arthroplasty demonstrate fixation hardware in appropriat e position. Hardware appears intact. No immediate complication identified. IMPRESSION: 1. No evidence for intraoperative complication. 2. Please see the operative/procedural note for further details. [facility], , 08/26/2024 6:18 PM
== END 2024-07-05 11:00 | disposition home or self-care (01) ==
LOC: OR 08:00 → UNDOADMIN 08:30 → 4SSUR 08:30 → UNDOADMIN 13:00 → 4SSUR 13:00 → OR 07-05 11:00 → UNDODISIN 07-05 11:30
PROVIDERS: ATTEND Orthopaedic Surgery
CPT/HCPCS: 64447; 73501